=== PATIENT | female | born 1945 | race Caucasian/White ===

== ENCOUNTER 2017-01-01 17:28 | Emergency (ER) | payer MEDICARE, OTHER ==
[~2017-01-01] VITALS: Ht 157.5 cm; Wt 81.3 kg
[~2017-01-01 17:28] MED LIST: ALPR0.5T6 PO; CLON-276 PO; DICL100G18 TP; FAMO20TA5 PO; GABA-585 PO; HYDR-971 PO; INSU100I13 SQ; INSU100V SQ; ISOS30TA4 PO; LACT10SO PO; LEVO100T5 PO; METO25TA9 PO; ONDA4TAB11 PO; RIFA550T4 PO; SERT50TA PO; ZOLP5TAB5 PO
[2017-01-01 17:46] VITALS: BP 164/67
--- NOTE | 2017-01-01 19:22 | ED.ADGEN ---
Past History Past Medical History: CHF, Diabetes, Other Past Surgical History: Hysterectomy, Other Alcohol Use: None Drug Use: None Adult General HPI HPI Patient is a 71-year-old female, history of type 2 diabetes mellitus, hypertension, CHF on 2 L nasal cannula baseline, end-stage renal disease on hemodialysis events emergency department with a complaint of paresthesias and tingling in her bilateral hands while finishing a session of dialysis. Patient is asymptomatic at this time. Patient states that she was also experiencing some cramping in her legs, which she states happens from time to time. Patient states that she missed dialysis on Sunday, and therefore this is part of a makeup session, with 2 hours of dialysis performed today, and for 2 hours of dialysis to be performed tomorrow. Dr. Nobles is her inspector filters. Patient generally is dialyzed on Sunday and Sunday. Patient denies any chest pain or shortness breath, any nausea or vomiting, any weakness. On arrival to the emergency room, patient states that her symptoms avulsed fully abated. She states her hands were "very cold". Patient is also requesting that a chronic umbilical hernia be examined. Denies any difficulty with passing stools, any change in her occasional abdominal pain. Review of Systems Review of Systems Constitutional: Denies fever or chills [] Eyes: Denies change in visual acuity, redness, or eye pain [] HENT: Denies nasal congestion or sore throat [] Respiratory: Denies cough or shortness of breath [] Cardiovascular: No additional information not addressed in HPI [] GI: Denies nausea, vomiting, bloody stools or diarrhea, chronic abdominal pain from umbilical hernia. [] : Denies dysuria or hematuria [] Musculoskeletal: Denies back pain or joint pain [] Integument: Denies rash or skin lesions [] Neurologic: Denies headache, focal weakness, tingling and numbness in the bilateral hands. Endocrine: Denies polyuria or polydipsia [] Allergies Allergies Allergies Coded Allergies Type Severity Reaction Last Updated Verified No Known Drug Allergies 05/10/16 No Physical Exam Physical Exam Constitutional: Well developed, well nourished, no acute distress, non-toxic appearance. [] Nasal cannula in place. HENT: Normocephalic, atraumatic, bilateral external ears normal, oropharynx moist, no oral exudates, nose normal. [] Eyes: PERRLA, EOMI, conjunctiva normal, no discharge. [] Neck: Normal range of motion, no tenderness, supple, no stridor. [] Cardiovascular:Heart rate regular rhythm, no murmur, S1, S2, no rubs or gallops. [] Lungs & Thorax: Diminished breath sounds at bases bilaterally, no rhonchi rales or wheezing identified. [] Abdomen: Bowel sounds normal, soft, no rebound or rigidity, patient with an easily reducible umbilical hernia, mildly tender to palpation, no masses, no pulsatile masses. [] Skin: Warm, dry, no erythema, no rash. [] Back: No tenderness, no CVA tenderness. [] Extremities: No tenderness, no cyanosis, no clubbing, ROM intact, no edema. [] Neurologic: Alert and oriented X 3, normal motor function, normal sensory function, no focal deficits noted. [] Psychologic: Affect normal, judgement normal, mood normal. [] Current Patient Data Vital Signs Vital Signs Date Time Temp Pulse Resp B/P (MAP) Pulse Ox O2 Delivery O2 Flow Rate FiO2 01/01/17 17:46 98.1 67 20 98 Room Air EKG EKG Not indicated. Radiology/Procedures Radiology/Procedures Not indicated. [] Course & Med Decision Making Course & Med Decision Making Pertinent Labs and Imaging studies reviewed. (See chart for details) patient well-appearing in the emergency department, oxygen saturation is 100% arrest at her baseline 2 L nasal cannula, she is normotensive, with heart rate in the 60s. Patient states that this time that she is feeling well, and is ready to be discharged home. I did discuss with patient the electrolyte shifts that will cause paresthesias at time, and also cramping. I discussed with her the chronic umbilical hernia, which has no evidence of acutely concerning findings, will be best served by follow-up with a surgeon. Patient states that she does not currently her surgeon to follow with, therefore gave her the contact admission for Dr. Herzog. Patient's arrived in the emergency department, and was anxious for the patient be discharged, patient was in agreement with this plan. We discussed concerning symptoms that prompt return to the ED, patient to follow -up for her dialysis session tomorrow, and to return to the ED for concerning symptoms as discussed, to follow-up with Dr. Herzog as instructed. Final Impression Final Impression [] Problems: Dragon Disclaimer Dragon Disclaimer This electronic medical record was generated, in whole or in part, using a voice recognition dictation system. Departure: Impression: Primary Impression: Paresthesia of hand, bilateral Disposition: 01 HOME, SELF-CARE Condition: STABLE BRENT JOHNSON DO January 01, 2017 19:22
== END 2017-01-01 18:28 | disposition home or self-care (01) ==
LOC: ER 17:28
DX: R20.2 Paresthesia of skin (principal); I13.2 Hypertensive heart and chronic kidney disease with heart failure and with stage 5 chronic kidney disease, or end stage renal disease; I50.9 Heart failure, unspecified; N18.6 End stage renal disease; E11.22 Type 2 diabetes mellitus with diabetic chronic kidney disease; Z99.2 Dependence on renal dialysis
CPT/HCPCS: 99281; 99283

== ENCOUNTER 2017-05-09 04:32 | Observation (INO) | payer MEDICARE, OTHER ==
[~2017-05-09] VITALS: Ht 152.4 cm; Wt 77.7 kg
[~2017-05-09 04:32] MED LIST changes: +METO-239 PO; -METO25TA9 PO
--- NOTE | 2017-05-09 04:37 | PHYS DOC ---
Past History Past Medical History: CHF, Diabetes, Other Past Surgical History: Hysterectomy, Other Alcohol Use: None Drug Use: None Adult General Chief Complaint Chief Complaint: altered mental status [facility] HPI Patient is a 71 year old female who presents with altered mental status. Her woke up with her moaning and checked her sugar and it was 25. EMS was called and they arrived her sugar was 44. An amp of D50 was given and her sugar improved to the 170s. Her oxygen level was 88 and she was put on 2 L this improved to the 90s. She is alert and oriented 3 and can answer all questions appropriately but is very sleepy. She states this is happen before after dialysis. She dialyzed yesterday morning. She has a history of congestive heart failure, diabetes and end-stage renal disease. She is unsure if she took a sleeping pill last night. She denies a headache nausea vomiting chest pain shortness of breath. Upon arrival the states that her sugar was close to 285 at 10 PM and was given 10 units of NovoLog and at 1:30 she did additional 5 units. He states he wakes up every 2 hours and checks her sugars if she is not acting appropriately and that's when he noticed this morning that it was 44. Review of Systems Review of Systems Constitutional: Denies fever or chills [] Eyes: Denies change in visual acuity, redness, or eye pain [] HENT: Denies nasal congestion or sore throat [] Respiratory: Denies cough or shortness of breath [] Cardiovascular: No additional information not addressed in HPI [] GI: Denies abdominal pain, nausea, vomiting, bloody stools or diarrhea [] : Denies dysuria or hematuria [] Musculoskeletal: Denies back pain or joint pain [] Integument: Denies rash or skin lesions [] Neurologic: Denies headache, focal weakness or sensory changes [] Endocrine: Denies polyuria or polydipsia [] Allergies Allergies Allergies Coded Allergies Type Severity Reaction Last Updated Verified No Known Drug Allergies 05/10/16 No Physical Exam Physical Exam Constitutional: Well developed, well nourished, no acute distress, non-toxic appearance. [] HENT: Normocephalic, atraumatic, bilateral external ears normal, oropharynx moist, no oral exudates, nose normal. [] Eyes: PERRLA, EOMI, conjunctiva normal, no discharge. [] Neck: Normal range of motion, no tenderness, supple, no stridor. [] Cardiovascular:Heart rate regular rhythm, no murmur [] Lungs & Thorax: Bilateral breath sounds clear to auscultation [] Abdomen: Bowel sounds normal, soft, no tenderness, no masses, no pulsatile masses. [] Skin: Warm, dry, no erythema, no rash. [] Back: No tenderness, no CVA tenderness. [] Extremities: No tenderness, no cyanosis, no clubbing, ROM intact, no edema. [] Neurologic: Alert and oriented X 3, normal motor function, normal sensory function, no focal deficits noted. Very sleepy appearing. Psychologic: Affect normal, judgement normal, mood normal. [] EKG EKG [] Radiology/Procedures Radiology/Procedures [] Impressions: Hypoglycemia Course & Med Decision Making Course & Med Decision Making Pertinent Labs and Imaging studies reviewed. (See chart for details) Patient is alert and oriented but very lethargic. Repeat Accu-Chek after arrival showed a sugar of 47 again. She received another amp of D50. Labs are pending at this time in addition to CT of her head. Patient is being checked out to Dr. Fang and will likely need admission based on her somnolence. Dragon Disclaimer Dragon Disclaimer This chart was dictated in whole or in part using Voice Recognition software in a busy, high-work load, and often noisy Emergency Department environment. It may contain unintended and wholly unrecognized errors or omissions. Departure Departure: Referrals: NON,STAFF (PCP) DOUG RIVAS MD May 09, 2017 04:37
--- NOTE | 2017-05-09 04:51 | EKG ---
[address] [address] Test Date: 2017-05-09 Test Time: 04:43:58 Pat Name: KRISTINE MENDEZ Department: Room: Gender: F Ship'S Engineer: : 1945 Requested By: DOUG RIVAS Order Number: [id number] Reading MD: Measurements Intervals [place] Rate: 58 P: 0 FL: 168 QRS: -8 QRSD: 96 T: 93 QT: 484 QTc: 479 Interpretive Statements SINUS RHYTHM LEFTWARD AXIS T ABNORMALITY IN HIGH LATERAL LEADS PROLONGED QT ABNORMAL ECG RI6.01 No previous ECG available for comparison
[2017-05-09 05:10] LABS: BASO % 1 % (0-3); EOS # 0.1 x10^3/uL (0.0-0.7); EOS % 3 % (0-3); HEMATOCRIT 29.5 % (36.0-47.0); HEMOGLOBIN 10.2 g/dL (12.0-15.5); LYMPH # 0.4 x10^3/uL (1.0-4.8); LYMPH % 14 % (24-48); MEAN CORPUSCULAR HEMOGLOBIN 31 pg (25-35); MEAN CORPUSCULAR HGB CONC 35 g/dL (31-37); MEAN CORPUSCULAR VOLUME 90 fL (79-100); MONO # 0.4 x10^3/uL (0.0-1.1); MONO % 14 % (0-9); NEUT # 1.9 x10^3uL (1.8-7.7); NEUT % 69 % (31-73); PLATELET COUNT 49 x10^3/uL (140-400); RED BLOOD COUNT 3.28 x10^6/uL (3.50-5.40); RED CELL DISTRIBUTION WIDTH 15.2 % (11.5-14.5); WHITE BLOOD COUNT 2.8 x10^3/uL (4.0-11.0)
[2017-05-09 05:17] LABS: PLT ESTIMATE DECREASED (ADEQUATE)
[2017-05-09 05:19] LABS: HEMOGLOBIN ISTAT 9.5 gm/dL; POTASSIUM ISTAT 3.1 mmol/L (3.5-5.0)
[2017-05-09] MEDS ORDERED: DEXTROSE 50% 25 GM / 50ML DISP.SYRIN. IV ONE ×3 (05:19→07:00)
--- NOTE | 2017-05-09 05:31 | RAD ---
CT head without contrast: Reason for examination: Altered mental status with lethargy. Comparison is made to previous study dated 05/10/2016. Axial images were obtained through the brain. No contrast was administered. Exposure: One or more of the following individualized dose reduction techniques were utilized for this examination: 1. Automated exposure control 2. Adjustment of the mA and/or kV according to patient size 3. Use of iterative reconstruction technique. Ventricular systems are symmetric and not abnormally dilated. No midline shift is seen. There is no evidence of intracranial hemorrhage, infarct, mass or edema. There is calcification in the right basal ganglia which is unchanged. No abnormalities are seen at the orbits. The paranasal sinuses and mastoid air cells are clear. No acute abnormality seen in the skull. IMPRESSION: No acute intracranial abnormality evident. Electronically signed by: Anne Damian MD (05/09/2017 5:27 AM) [facility]
[2017-05-09 05:35] LABS: CLARITY,URINE HAZY; GLUCOSE,URINE 250 mg/dL (NEG)
[2017-05-09 05:36] LABS: BILIRUBIN,URINE NEG (NEG); NITRITE,URINE NEG (NEG); RBC,URINE OCC /HPF (0-2); UROBILINOGEN,URINE 0.2 mg/dL (0.2 mg/dL)
[2017-05-09 05:37] LABS: BACTERIA,URINE FEW /HPF (0-FEW); COLOR,URINE YELLOW; SQUAMOUS EPITHELIAL CELL,UR OCC /LPF
[2017-05-09 06:05] LABS: BARBITURATES NEG (NEG); BENZODIAZEPINES POS (NEG); CANNABINOIDS NEG (NEG); COCAINE NEG (NEG); METHADONE NEG (NEG); OPIATES NEG (NEG); PHENCYCLIDINE NEG (NEG)
[2017-05-09 06:12] LABS: CALCIUM 7.3 mg/dL (8.5-10.1); CREATININE 4.6 mg/dL (0.6-1.0); GFR 9.4; MAGNESIUM 2.3 mg/dL (1.8-2.4)
[2017-05-09 06:13] LABS: POTASSIUM 3.1 mmol/L (3.5-5.1)
[2017-05-09 06:15] LABS: AMPHETAMINE/METHAMPHETAMINE NEG (NEG)
[2017-05-09] MEDS ORDERED: ONDANSETRON PF 4 MG/2 ML VIAL. IV PRN ×2 (06:30→07:45)
[2017-05-09] MEDS ORDERED: IV DEXTROSE 5 %-0.45 % NACL 1,000 ML IV ONE (06:30)
[2017-05-09] MEDS ORDERED: MORPHINE SULFATE 2 MG/ML DISP.SYRIN. IV PRN (06:30)
--- NOTE | 2017-05-09 07:23 | RAD ---
Chest x-ray Indication: Altered mental status, lethargic Technique: Portable AP chest x-ray Comparison: Previous study from 05/10/2016 Findings: Stable moderate cardiomegaly. Prominent pulmonary vasculature noted with signs of cephalization. Patchy bilateral lung base opacities noted. No pneumothorax or large pleural effusion. Visualized bony thorax within normal limits. Impression: 1. Stable moderate clinically with pulmonary vascular congestion. 2. Bibasilar patchy opacities may be secondary to atelectasis, aspiration or pneumonia. Clinically correlate.
[2017-05-09 08:49] VITALS: BP 158/53
[2017-05-09] MEDS ORDERED: SODI650T PO (09:01)
[2017-05-09] MEDS ORDERED: SEVE800T9 PO (09:01)
[2017-05-09] MEDS ORDERED: ASPI325T8 PO (10:03)
[2017-05-09 10:11] VITALS: BP 136/68
[2017-05-09] MEDS ORDERED: CHOL500016 PO (11:15)
[2017-05-09] MEDS ORDERED: DIPH25CA58 PO (11:15)
[2017-05-09] MEDS ORDERED: POTASSIUM CHLORIDE 20 MEQ TABLET.ER. PO ONE (11:30)
--- NOTE | 2017-05-09 11:55 | HP ---
ADMIT DATE: 05/09/2017 REASON FOR ADMISSION: Hypoglycemia, altered mental status. HISTORY OF PRESENT ILLNESS: History was obtained from the patient, and this is a 71-year-old female, who was admitted to the Emergency Room. The heard her moaning in her sleep and checked her sugar and it was 25, and EMS was called. When they arrived, her glucose was 44. She received an amp of D50 and sugar improved to 170. She was mildly hypoxic at 88, and was placed on some oxygen. She states that her dropped her meter in her coffee and so used his meter and it has registered high and so she gave herself 10 units of NovoLog at 1:30 and an additional 5 units. The patient is a hemodialysis patient and actually missed her Sunday dialysis and had her dialysis yesterday. Per [facility], they state that she had a lot of fluid, and they were not able to get all the fluid off. She gets dialysis every other day. PAST MEDICAL HISTORY: She has a history of seizure from hyperglycemia; end-stage renal disease, on hemodialysis; pancytopenia; nonalcoholic cirrhosis, requiring paracentesis every 6 months; hypertension; hypokalemia; hypomagnesemia in the past and two small strokes per MRI. She has neuropathy. She has a Charcot joint in the right foot and also anxiety, depression, longstanding type 2 diabetes, hyperparathyroidism, hyperlipidemia, and congestive heart failure. PAST SURGICAL HISTORY: AV fistula, right arm and hysterectomy. FAMILY HISTORY: Positive for hypertension. SOCIAL HISTORY: Alcohol: None. Drugs: None. Tobacco: Remote and no longer smokes. REVIEW OF SYSTEMS: The patient's health is stable. She has no specific complaints other than being very tired, having been up all night and had the low blood sugar symptoms nausea, vomiting, diarrhea. She also has insomnia. MEDICATIONS: Her medications were reviewed; however, we do not have an accurate list. She has had a decrease in her Lantus, which she previously was on 70 units and is now down to 20 units at bedtime and usually gives herself 30 of Humalog 3 times a day with meals. She does have some type of supplemental scale. ALLERGIES: None. OBJECTIVE: VITAL SIGNS: Blood pressure 136/68, temperature 97.3, pulse 59, respirations 18, pulse ox 99% on room air. Height 60 inches, weight 171.31 pounds. GENERAL: Chronically ill appearing 71-year-old, in no acute distress. She does not have her glasses, her vision is impaired. Her hearing is normal. Her nose is patent. Her throat is clear. NECK: Supple. LUNGS: Clear to auscultation. CARDIOVASCULAR: Regular rhythm and rate. ABDOMEN: Soft, nontender. Could not appreciate any organomegaly. EXTREMITIES: Evidence of peripheral vascular disease, could not really palpate her pulses. SKIN: Very dry. She has a Charcot joint in the right foot with a rocker bottom right foot. LABORATORY DATA: Lowest glucose in the Emergency Room was 47. Her potassium was 3.1, magnesium 2.3. Ammonia is slightly high at 72. ASSESSMENT: 1. Hypoglycemia, with excessive insulin administration 2. Type 2 diabetes. 3. Altered mental status that appears to have resolved now. 4. Peripheral neuropathy. 5. End-stage renal disease, on dialysis. 6. History of depression. 7. History of anxiety. 8. Insomnia. 9. Hyperammonemia, most probably secondary to cirrhosis. 10. Elevated BNP without evidence of congestive heart failure. PLAN: Adjust her insulin. Monitor her glucoses for the next several hours and probably could discharge her later on today. Replace her potassium. PADMINI ENG DO DR: WILVER/gilda JOB#: [id number] / [id number]
[2017-05-09 12:05] VITALS: BP 147/57
[2017-05-09] MEDS ORDERED: INSU100I13 SQ (13:46)
[2017-05-09 15:58] VITALS: BP 155/59
--- NOTE | 2017-05-11 15:12 | DS ---
DATE OF DISCHARGE: 05/09/2017 DISCHARGE DIAGNOSES: 1. Hypoglycemia. 2. Type 2 diabetes. 3. Altered mental status, resolved. 4. Metabolic encephalopathy was from hypoglycemia. 5. Peripheral neuropathy. 6. End-stage renal disease on dialysis, present on admission. 7. History of depression, present on admission. 8. Anxiety, present on admission. 9. Insomnia, present on admission. 10. Hyperammonemia secondary to cirrhosis, present on admission. 11. Elevated BNP. HOSPITAL COURSE: The patient was admitted for observation because of very low blood sugars and giving herself too much insulin at home. Her glucoses came up nicely. She did not suffer any more sequelae while hospitalized and will be, I believe, discharged to home. She will be getting a new meter and for medication, see [facility]. PADMINI ENG DO DR: WILVER/gilda JOB#: [id number] / [id number]
== END 2017-05-09 16:30 | disposition home or self-care (01) ==
LOC: ER 04:32 → ICU 06:30
PROVIDERS: ADMIT Family Medicine; ATTEND Family Medicine
DX: E11.649 Type 2 diabetes mellitus with hypoglycemia without coma (principal); E11.22 Type 2 diabetes mellitus with diabetic chronic kidney disease; N18.6 End stage renal disease; G47.00 Insomnia, unspecified; E11.610 Type 2 diabetes mellitus with diabetic neuropathic arthropathy; F32.9 Major depressive disorder, single episode, unspecified; F41.9 Anxiety disorder, unspecified; I50.9 Heart failure, unspecified; E72.20 Disorder of urea cycle metabolism, unspecified; K74.69 Other cirrhosis of liver; G62.9 Polyneuropathy, unspecified; E78.5 Hyperlipidemia, unspecified; Z82.49 Family history of ischemic heart disease and other diseases of the circulatory system; Z86.73 Personal history of transient ischemic attack (TIA), and cerebral infarction without residual deficits; Z87.891 Personal history of nicotine dependence; Z90.710 Acquired absence of both cervix and uterus; Z99.2 Dependence on renal dialysis
CPT/HCPCS: 36415; 70450; 71010; 80047; 80048; 80307; 81001; 82140; 82553; 82947; 83735; 83880; 84484; 85025; 87086; 87641; 93005; 96361; 96374; 96376; 99285; G0378; G0379; G0479

== ENCOUNTER 2018-01-09 13:07 | Emergency (ER) | payer MEDICARE, OTHER ==
[~2018-01-09] VITALS: Ht 152.4 cm; Wt 81.3 kg
[~2018-01-09 13:07] MED LIST changes: +ASPI325T8 PO; +CHOL500016 PO; +DIPH25CA58 PO; +SEVE800T9 PO; +SODI650T PO
--- NOTE | 2018-01-09 13:25 | PHYS DOC ---
Past History Past Medical History: CHF, Diabetes, Renal Disease, Other Additional Past Medical Histor: liver failure Past Surgical History: Hysterectomy, Other Alcohol Use: None Drug Use: None Adult General Chief Complaint Chief Complaint: DENTAL PROBLEM HPI HPI Patient is a 72-year-old female, with a past history of liver disease, end- stage renal disease, on dialysis Sunday, , Sunday, whose last dialysis was yesterday, who presents to the emergency department for evaluation. She underwent removal of multiple teeth this morning, in preparation for having dentures placed. The patient developed some bleeding from her gums, and EMS was called. The bleeding has mostly resolved at this time. The patient denies any other complaints of pain at this time. She does not take any anticoagulants. She is not having any difficulty breathing. She does have a history of oxygen dependence. Review of Systems Review of Systems Constitutional: Denies fever or chills [] Eyes: Denies change in visual acuity, redness, or eye pain [] HENT: Denies nasal congestion or sore throat [] Respiratory: Denies cough or shortness of breath [] Cardiovascular: No chest pain or shortness of breath[] GI: Denies abdominal pain, nausea, vomiting, bloody stools or diarrhea [] Neurologic: Denies headache, focal weakness or sensory changes [] Hematologic: Does bruise easily. Allergies Allergies Allergies Coded Allergies Type Severity Reaction Last Updated Verified No Known Drug Allergies 05/10/16 No Physical Exam Physical Exam PHYSICAL EXAM: CONSTITUTIONAL: Well developed, well nourished HEAD: normocephalic, atraumatic. There are numerous dental extraction sites, with fresh clots present. There is no active bleeding visualized at this time. Airways patent. EENT: PERRL, EOMI. Conjunctivae normal color, sclerae non-icteric; moist mucous membranes. NECK: Supple, non-tender; no meningismus. LUNGS: Lungs CTA, breathing even and unlabored. Normal air movement. HEART: Regular rate and rhythm, no murmur CHEST: No deformity; non-tender ABDOMEN: The abdomen is soft, and non-tender, no masses or bruits. EXTREM: Normal ROM; no deformity, no calf tenderness. Normal pulses palpable in all extremities. There is mild bilateral pedal edema. Changes of venous stasis bilaterally. Left greater than right. There is a fistula in the right upper extremity. SKIN: No rash; no diaphoresis NEURO: Alert; normal speech and cognition; CN's grossly intact; strength grossly intact without focal deficit. BACK: No CVA TTP. EKG EKG [] Radiology/Procedures Radiology/Procedures [] Course & Med Decision Making Course & Med Decision Making Pertinent Lab studies reviewed. (See chart for details) [Patient condition remain stable. Bleeding has resolved with direct pressure. I discussed test results, the need for follow-up with her dentist on return precautions. The patient platelet count is similar to her baseline] Dragon Disclaimer Dragon Disclaimer This electronic medical record was generated, in whole or in part, using a voice recognition dictation system. Departure Departure: Impression: Primary Impression: Surgical wound hemorrhage after dental procedure Disposition: 01 HOME, SELF-CARE Condition: STABLE Referrals: NON,STAFF (PCP) Additional Instructions: Return to medical care for any new, or worsening symptoms, development of recurrent bleeding that does not stop with pressure, or any other concerning symptoms. BALDOMERO CASTAÑEDA MD Jan 09, 2018 13:24
[2018-01-09 13:51] LABS: CREATININE 3.8 mg/dL (0.6-1.0); GFR 11.7; POTASSIUM 4.4 mmol/L (3.5-5.1)
[2018-01-09 13:52] LABS: BASO % 1 % (0-3); EOS # 0.1 x10^3/uL (0.0-0.7); EOS % 2 % (0-3); HEMATOCRIT 29.4 % (36.0-47.0); HEMOGLOBIN 10.1 g/dL (12.0-15.5); LYMPH # 0.4 x10^3/uL (1.0-4.8); LYMPH % 10 % (24-48); MEAN CORPUSCULAR HEMOGLOBIN 31 pg (25-35); MEAN CORPUSCULAR HGB CONC 34 g/dL (31-37); MEAN CORPUSCULAR VOLUME 91 fL (79-100); MONO # 0.3 x10^3/uL (0.0-1.1); MONO % 7 % (0-9); NEUT # 3.2 x10^3uL (1.8-7.7); NEUT % 81 % (31-73); PLATELET COUNT 68 x10^3/uL (140-400); RED BLOOD COUNT 3.25 x10^6/uL (3.50-5.40)
[2018-01-09 14:36] VITALS: BP 162/63
== END 2018-01-09 14:37 | disposition home or self-care (01) ==
LOC: ER 13:07
DX: K91.840 Postprocedural hemorrhage of a digestive system organ or structure following a digestive system procedure (principal); E11.22 Type 2 diabetes mellitus with diabetic chronic kidney disease; N18.6 End stage renal disease; Z99.2 Dependence on renal dialysis; I50.9 Heart failure, unspecified; Z99.81 Dependence on supplemental oxygen
CPT/HCPCS: 36415; 80048; 85025; 85610; 85730; 99284

== ENCOUNTER 2018-01-20 22:14 | Emergency (ER) | payer MEDICARE, OTHER ==
[~2018-01-20] VITALS: Ht 152.4 cm; Wt 75.1 kg
[2018-01-20 22:15] VITALS: BP 165/65
--- NOTE | 2018-01-20 23:03 | RAD ---
EXAM: Right wrist, 3 views; right forearm, 2 views. HISTORY: Pain. COMPARISON: None. FINDINGS: 3 views of the right wrist and 2 views of the right forearm are obtained. There is external casting material significantly limiting evaluation of bony detail. There is a comminuted displaced intra-articular fracture of the distal radial metaphysis. There is a displaced fracture of the distal ulnar metaphysis and ulnar styloid. There are vascular calcifications. No proximal radial or ulnar fracture is seen. There is no evidence of an elbow effusion. IMPRESSION: 1. External casting material limiting evaluation of bony detail. 2. Displaced intra-articular fracture of the distal radial metaphysis. 3. Displaced distal ulnar metaphyseal and ulnar styloid fractures. Electronically signed by: Connie Galarza MD (01/20/2018 10:58 PM) [facility]
--- NOTE | 2018-01-20 23:07 | ED.ADGEN ---
Past History Past Medical History: CHF, COPD, Diabetes, Hypertension, Renal Failure Additional Past Medical Histor: liver failure Past Surgical History: Hysterectomy Alcohol Use: None Drug Use: None Adult General HPI HPI Patient is a 72 year old female who presents with injury to the right hand. The patient was working all day today. She stumbled and fell forward on an outstretched hand. She sustained an injury to the right fingers. The patient is currently wearing a cast. She had a fall and december when she broke her distal ulna and radius. She has been tested since that time. She is concerned today that she reinjured the broken bone or sustained a new injury to her hand or fingers. Review of Systems Review of Systems Constitutional: Denies fever or chills Respiratory: mild dyspnea sx that are chronic Cardiovascular: No additional information not addressed in HPI GI: Denies abdominal pain Musculoskeletal: Denies back pain or joint pain Integument: Denies rash or skin lesions Neurologic: Denies headache Endocrine: Denies polyuria All other systems were reviewed and found to be within normal limits, except as documented in this note. Allergies Allergies Allergies Coded Allergies Type Severity Reaction Last Updated Verified No Known Drug Allergies 05/10/16 No Physical Exam Physical Exam Constitutional: Well developed, well nourished, no acute distress, non-toxic appearance HENT: Normocephalic, atraumatic, bilateral external ears normal, oropharynx moist Neck: Normal range of motion, no tenderness Skin: Warm, dry, no erythema Back: No tenderness Extremities: Fiberglass wrist splint is present over the right wrist and forearm. The fingertips are warm to touch with brisk capillary refill. There is no gross deformity. The patient has arthritic joints. There is some very mild tenderness over the index finger PIP joint but the joint does have free range of motion. Neurologic: Alert and oriented X 3 Current Patient Data Vital Signs Vital Signs Date Time Temp Pulse Resp B/P (MAP) Pulse Ox O2 Delivery O2 Flow Rate FiO2 01/20/18 22:15 99.0 72 22 93 Room Air EKG EKG [] Radiology/Procedures Radiology/Procedures FINDINGS: 3 views of the right wrist and 2 views of the right forearm are obtained. There is external casting material significantly limiting evaluation of bony detail. There is a comminuted displaced intra-articular fracture of the distal radial metaphysis. There is a displaced fracture of the distal ulnar metaphysis and ulnar styloid. There are vascular calcifications. No proximal radial or ulnar fracture is seen. There is no evidence of an elbow effusion. IMPRESSION: 1. External casting material limiting evaluation of bony detail. 2. Displaced intra-articular fracture of the distal radial metaphysis. 3. Displaced distal ulnar metaphyseal and ulnar styloid fractures. Course & Med Decision Making Course & Med Decision Making Pertinent Labs and Imaging studies reviewed. (See chart for details) Patient is seen and examined in the ER for a fall. She had a finger injury as described above. X-rays were completed of the wrist and forearm. These were revealing for the fractures which are early known about. I did not appreciate any fracture in the finger or the area of concern distal to her current cast. She or he has pain medications at home. She is discharged to home and encouraged to follow up with her primary care doctor or orthopedist as already scheduled. Final Impression Final Impression contusion of finger Zoraida Disclaimer Dragon Disclaimer This electronic medical record was generated, in whole or in part, using a voice recognition dictation system. TRUE RAGSDALE DO Jan 20, 2018 23:07
== END 2018-01-20 23:23 | disposition home or self-care (01) ==
LOC: ER 22:14
DX: S52.611A Displaced fracture of right ulna styloid process, initial encounter for closed fracture (principal); S52.91XA Unspecified fracture of right forearm, initial encounter for closed fracture; S60.021A Contusion of right index finger without damage to nail, initial encounter; J44.9 Chronic obstructive pulmonary disease, unspecified; I11.0 Hypertensive heart disease with heart failure; I50.9 Heart failure, unspecified; E11.9 Type 2 diabetes mellitus without complications; W01.0XXA Fall on same level from slipping, tripping and stumbling without subsequent striking against object, initial encounter; Y93.89 Activity, other specified; Y99.8 Other external cause status; Y92.89 Other specified places as the place of occurrence of the external cause
CPT/HCPCS: 73090; 73110; 99284

== ENCOUNTER 2018-03-01 17:50 | Emergency (ER) | payer MEDICARE, OTHER ==
[~2018-03-01] VITALS: Ht 152.4 cm; Wt 75.1 kg
--- NOTE | 2018-03-01 17:54 | ED.ADGEN ---
Past History Past Medical History: CHF, COPD, Diabetes, Hypertension, Renal Failure, Other Additional Past Medical Histor: liver failure Past Surgical History: Hysterectomy, Other Alcohol Use: None Drug Use: None Adult General Chief Complaint Chief Complaint '.. I was cleaning out some drawers in the kitchen...and I was standing.. and eliana lost my balance and felll... hurt my Rt hand... you can see the blood blister.... and hit my bad lt knee... the one that had surgery... and then smacked my face on the floor... I still got a sore face and headache.. and I fell about 500 pm.. but I am still hurting..." HPI HPI Patient is a 72 year old female who presents with above hx and complaints of trip and fall while she is working in the kitchen. Patient denies any dysrhythmia or syncopal episode. Patient was not using a walker at the time. Patient is not wearing her wrist splint that time. Patient already has radius and or fracture and right wrist. Has a new blood blister on her dorsal area of right hand. Has contusion to the left knee. Distal neurovascular appears intact. Patient able to do straight leg lifts. Patient able to tennis ball coverer hand with hand. Patient has contusions to face. Has what appears to be a nasal fracture or marked edema. No septal hematoma. No changes in vision. Neck is nontender. Patient states he does take a blood thinner. Patient normally follows at [facility] for care. Review of Systems Review of Systems Constitutional: Denies fever or chills [] Eyes: Denies change in visual acuity, redness, or eye pain [] HENT: Denies nasal congestion or sore throat []complains of contusion to face and nose Respiratory: Denies cough or shortness of breath [] Cardiovascular: No additional information not addressed in HPI [] GI: Denies abdominal pain, nausea, vomiting, bloody stools or diarrhea [] : Denies dysuria or hematuria [] Musculoskeletal: Denies back pain or joint pain [complains of contusion to left knee and right wrist and hand. Integument: Denies rash or skin lesions [] Neurologic: Denies headache, focal weakness or sensory changes [] Endocrine: Denies polyuria or polydipsia [] All other systems were reviewed and found to be within normal limits, except as documented in this note. Family History Family History Noncontributory Current Medications Current Medications Current Medications Medications (Trade) Dose Ordered Sig/Christ Start Time Stop Time Status Last Admin Dose Admin Oxycodone/ Acetaminophen (Percocet 5/325) 1 tab 1X ONCE 03/01/18 18:00 03/01/18 18:05 DC 03/01/18 18:42 1 TAB Allergies Allergies Allergies Coded Allergies Type Severity Reaction Last Updated Verified No Known Drug Allergies 05/10/16 No Physical Exam Physical Exam Constitutional: Mild distress, non-toxic appearance. [] HENT: Normocephalic, contusion mid face, bilateral external ears normal, oropharynx moist, no oral exudates, nose:. Does have tenderness along the bony portion of nasal bridge] Eyes: PERRLA, EOMI, conjunctiva normal, no discharge. [] Neck: Normal range of motion, no tenderness, supple, no stridor. [] Cardiovascular:Heart rate regular rhythm, no murmur []PMI to the left. Lungs & Thorax: Bilateral breath sounds equal apex with scattered crackles bilateral bases on Auscultation [] Abdomen: Bowel sounds normal, soft, no tenderness, no masses, no pulsatile masses. [] Old surgical scar. Skin: Warm, dry, no erythema, no rash. Multiple contusions and abrasions in the distant stages of healing. No contusions to left knee right hand and midface Back: No tenderness, no CVA tenderness. [] Extremities: Left knee tenderness, no cyanosis, no clubbing, ROM intact, no edema. []Can do straight leg lift with Lt leg, old scar and new contusion Lt. knee. Does have crepitation range of motion. Patient is ambulatory without problems- but has some shuffle gait. . Arthritic changes. Neurologic: Alert and oriented X 3, normal motor function, normal sensory function, no focal deficits noted. [] Psychologic: Affect anxious, judgement normal, mood normal. [] Current Patient Data Vital Signs Vital Signs Date Time Temp Pulse Resp B/P (MAP) Pulse Ox O2 Delivery O2 Flow Rate FiO2 03/01/18 18:05 71 18 95 Room Air EKG EKG My interpretation EKG shows a sinus rhythm at 72 bpm. Does have a junctional rhythm. Left axis. Nonspecific T-wave changes.[] Radiology/Procedures Radiology/Procedures I interpretation of CT head shows no shift, mass, edema, bleed, or fracture. Does have generalized atrophy. Findings of dictation of facial film shows minimally displaced nasal fracture. My interpretation of right wrist and hand film shows no new fractures and hand but has old minimal healing of right wrist fracture. My interpretation of knee shows no obvious fracture or dislocation. Does have arthritic changes, calcification of arteries and degenerative joint changes. My interpretation chest x-ray shows cardiomegaly. Calcified aorta, some increased cephalization consistent with CHF.[] Course & Med Decision Making Course & Med Decision Making Pertinent Labs and Imaging studies reviewed. (See chart for details). Follow- up primary care. Use ice packs. Use walker. Use wrist splint. Keep follow-up with orthopedic. Patient is ambulatory missed follow-up appointments on 02/22 and 02/27. Patient refusing admission for neuro evaluation or further workup at this time. Demanding discharge. Patient exhibits UCAR capacity. [] Final Impression Final Impression 1. Contusions - Face, Rt. hand, Lt. knee 2. Nasal Fx- new 3. Wrist Fx. Rt. old- all her and radius. 4. Pulmonary edema/CHF- history of a chronic condition Dragon Disclaimer Dragon Disclaimer This electronic medical record was generated, in whole or in part, using a voice recognition dictation system. BETTY WEAVER MD Mar 01, 2018 17:54
[2018-03-01] MEDS ORDERED: oxyCODONE/APAP 5/325 1 TAB TABLET PO ONE (18:00)
[2018-03-01 18:05] VITALS: BP 145/54
--- NOTE | 2018-03-01 18:39 | EKG ---
[address] [address] Test Date: 2018-03-01 Test Time: 18:35:32 Pat Name: KRISTINE MENDEZ Department: Room: Gender: F Thread Cutter: : [id number] Requested By: BETTY WEAVER Order Number: [id number] Reading MD: Measurements Intervals [place] Rate: 72 P: [place]: QRS: -9 QRSD: 90 T: 71 QT: 404 QTc: 444 Interpretive Statements ACCELERATED JUNCTIONAL RHYTHM LEFTWARD AXIS T ABNORMALITY IN HIGH LATERAL LEADS ABNORMAL ECG RI6.01 Compared to ECG 05/09/2017 04:43:58 Accelerated junctional rhythm now present Sinus rhythm no longer present Prolonged QT interval no longer present T-wave abnormality still present
--- NOTE | 2018-03-01 18:40 | RAD ---
CT head without intravenous contrast History: Fall. Comparison: CT head May 19, 2017. Technique: Axial images are obtained of the head from the skull base through the vertex without IV contrast. Exposure: One or more of the following individualized dose reduction techniques were utilized for this examination: 1. Automated exposure control 2. Adjustment of the mA and/or kV according to patient size 3. Use of iterative reconstruction technique Findings: The ventricles are appropriate in size, shape, and location for the patient's age. No obvious intracranial mass, mass-effect, midline shift, hemorrhage or obvious acute infarction is identified. Basilar cisterns are patent. Mild, patchy, nonspecific white matter low-attenuation seen, probably from chronic microvascular ischemic disease. Bone windows demonstrate no acute calvarial abnormality. The visualized paranasal sinuses appear clear. Impression: 1. No acute intracranial process. Please note that CT can be relatively insensitive to acute ischemic infarction for up to 24 hours after symptom onset. 2. Nonspecific white matter changes, probably from chronic microvascular ischemic disease. CT cervical spine Technique: Noncontrast CT of the cervical spine was performed using helical technique. Axial, sagittal, coronal reconstructions were obtained. Exposure: One or more of the following individualized dose reduction techniques were utilized for this examination: 1. Automated exposure control 2. Adjustment of the mA and/or kV according to patient size 3. Use of iterative reconstruction technique Findings: There is no evidence of acute fracture or acute malalignment involving the cervical spine. No prevertebral soft tissue swelling is identified. Multilevel degeneration is seen with facet and uncovertebral hypertrophy as well as degenerative disc disease. Impression: 1. No evidence of acute traumatic injury involving the cervical spine. 2. Degeneration. Electronically signed by: Adrien Jara MD (03/01/2018 6:37 PM) [facility]
--- NOTE | 2018-03-01 18:48 | RAD ---
CT face without contrast History: Fall. Technique: CT of the face was performed without intravenous contrast. Axial, sagittal, and coronal reconstructions were obtained. Exposure: One or more of the following individualized dose reduction techniques were utilized for this examination: 1. Automated exposure control 2. Adjustment of the mA and/or kV according to patient size 3. Use of iterative reconstruction technique Findings: There is motion artifact at a few levels which could obscure subtle abnormalities. Slightly displaced bilateral nasal bone fractures are seen. There is evidence of mild nasal soft tissue swelling. The visualized paranasal sinuses are clear with no significant mucosal thickening. Bilateral orbits and orbital contents appear intact. Impression: Mildly limited examination. Slightly displaced bilateral nasal bone fractures. Electronically signed by: Adrien Jara MD (03/01/2018 6:44 PM) [facility]
--- NOTE | 2018-03-01 19:08 | RAD ---
History: Fall. Comparison: None. Findings: AP, lateral, oblique, and merchant view of left knee. Osseous structures appear demineralized. No acute fracture or dislocation is seen. No joint effusion is appreciated. Quadriceps tendon insertional enthesophyte is present. Arterial calcifications are seen. No significant degeneration is identified. The diffuse soft tissue swelling is noted in the visualized structures. Impression: No acute osseous traumatic injury identified. Electronically signed by: Adrien Jara MD (03/01/2018 7:04 PM) [facility]
--- NOTE | 2018-03-01 19:10 | RAD ---
History: Fall. Comparison: Right wrist radiographs January 20, 2018. Findings: PA, lateral, and oblique views of the right hand. Osseous structures appear demineralized. No acute fracture or dislocation is identified in the bones of the hand itself. Arterial calcifications are seen. Subacute fractures are again seen involving the distal radius and ulna. Distal ulnar fracture demonstrates a large amount of osteolysis without significant bridging callus formation. There is some sclerosis of the distal radial fracture. Impression: 1. No acute osseous traumatic injury identified in the bones of the hand. 2. Known, subacute distal radial and ulnar fractures. Electronically signed by: Adrien Jara MD (03/01/2018 7:07 PM) [facility]
--- NOTE | 2018-03-01 19:11 | RAD ---
PA and lateral chest radiograph. History: Fall. Comparison: May 09, 2017. Findings: Cardiac silhouette is mildly enlarged. No pneumothorax or pleural effusion is identified. Pulmonary vascular redistribution is seen. No large consolidation is seen. Impression: 1. Pulmonary vascular congestion. Electronically signed by: Adrien Jara MD (03/01/2018 7:08 PM) [facility]
== END 2018-03-01 19:48 | disposition home or self-care (01) ==
LOC: ER 17:50
DX: S02.2XXA Fracture of nasal bones, initial encounter for closed fracture (principal); S00.83XA Contusion of other part of head, initial encounter; S80.02XA Contusion of left knee, initial encounter; S60.221A Contusion of right hand, initial encounter; I11.0 Hypertensive heart disease with heart failure; I50.9 Heart failure, unspecified; J44.9 Chronic obstructive pulmonary disease, unspecified; E11.9 Type 2 diabetes mellitus without complications; N19 Unspecified kidney failure; S52.501D Unspecified fracture of the lower end of right radius, subsequent encounter for closed fracture with routine healing; S52.601D Unspecified fracture of lower end of right ulna, subsequent encounter for closed fracture with routine healing; W01.198A Fall on same level from slipping, tripping and stumbling with subsequent striking against other object, initial encounter; Y93.E9 Activity, other interior property and clothing maintenance; Y92.090 Kitchen in other non-institutional residence as the place of occurrence of the external cause; Y99.0 Civilian activity done for income or pay
CPT/HCPCS: 70450; 70486; 71046; 72125; 73130; 73564; 93005; 99284-25

== ENCOUNTER → 2018-05-06 | Outpatient (CLI) | payer MEDICARE, OTHER ==
[~2018-05-06] MED LIST changes: +IOHEXOL 240 MG/ML 50ML VIAL. ONE; +IOHEXOL 240 MG/ML 50ML VIAL. PO ONE; +IOHEXOL 300 MG/ML 75 ML VIAL. IV ONE
[2018-05-06 10:22] LABS: CREATININE 4.2 mg/dL (0.6-1.0); GFR 10.4
--- NOTE | 2018-05-06 12:16 | RAD ---
CT of the abdomen and pelvis with IV contrast. 05/06/2018 INDICATION: Right lower quadrant abdominal pain. History of cirrhosis, ascites. Renal failure, congestive heart failure, diabetes, and hypertension. COMPARISON STUDY: None available. TECHNIQUE: Multidetector CT imaging of the abdomen and pelvis was performed following the administration of IV contrast. Visualized lung bases demonstrate mild dependent atelectasis but otherwise unremarkable. There is a small 7 mm hypodensity in the posterior mid right kidney suggestive of a cyst, though incompletely evaluated. The kidneys are otherwise unremarkable. The adrenal glands are unremarkable. The pancreas is atrophic in appearance. Multiple small stones are noted within the dependent portion of the gallbladder. There is a small calcification noted in the distal common bile duct. The common bile duct measures approximately 6 mm in diameter which is top normal. No intrahepatic biliary dilatation is seen. Cirrhotic morphology of liver is seen. Scattered small hepatic hypodensities are seen suggestive of cysts. Some smaller lesions are noted which are too small to adequately characterize based on CT examination. Cirrhotic liver morphology is noted. Ascites is seen in the upper abdomen bilaterally. The spleen is markedly enlarged. The spleen measures up to 18.5 cm longitudinally. Calcification of the celiac axis and dense calcification of the splenic artery noted. Multiple prominent gastroesophageal varices are seen. A splenorenal shunt is noted. Scant ascites is seen in the lower abdomen. Diffuse body wall and mesenteric edema is noted. There is no evidence of bowel obstruction. The presence of diffuse edema limits evaluation for subtle inflammatory change. No definitive inflammatory change involving the bowel is identified. The appendix is visualized appears to be grossly unremarkable, though again being surrounded by edema and ascites, somewhat limits sensitivity. There is an umbilical hernia. The hernia sac is filled with fluid/ascites. Hernia defect is relatively small measuring 2 cm longitudinally by 2.5 cm transverse. Small amount of mesenteric fat and varices are present within the hernia sac. The umbilical vein all small appears to be recanalized. No evidence of acute osseous abnormality is identified. IMPRESSION: 1. Choledocholithiasis with small stone noted in the distal common bile duct. Common bile duct is mildly prominent at 6 mm. No intrahepatic biliary dilatation is seen. Cholelithiasis also noted. Recommend correlation with serum bilirubin levels and clinical findings. 2. Cirrhosis with portal hypertension including ascites, marked Splenomegaly, gastroesophageal varices, and a splenorenal shunt 3. Diffuse body wall and mesenteric edema 4. 7 mm nonspecific hypodensity, posterior right kidney. Finding most likely represents a cyst. Attention on follow-up studies recommended. 5. Umbilical hernia CT DOSING PQRS STATEMENT: One or more of the following individualized dose reduction techniques were utilized for this examination: 1. Automated exposure control 2. Adjustment of the mA and/or kV according to patient size 3. Use of iterative reconstruction technique Electronically signed by: Reinaldo Oliva MD (05/06/2018 12:12 PM) [id number]
== END | disposition home or self-care (01) ==
LOC: CT 09:15
PROVIDERS: ATTEND Internal Medicine Gastroenterology
DX: K74.69 Other cirrhosis of liver (principal); K80.50 Calculus of bile duct without cholangitis or cholecystitis without obstruction; K80.20 Calculus of gallbladder without cholecystitis without obstruction; K42.9 Umbilical hernia without obstruction or gangrene; R16.1 Splenomegaly, not elsewhere classified; R18.8 Other ascites; J98.11 Atelectasis; I13.2 Hypertensive heart and chronic kidney disease with heart failure and with stage 5 chronic kidney disease, or end stage renal disease; E11.22 Type 2 diabetes mellitus with diabetic chronic kidney disease; I50.9 Heart failure, unspecified; N18.6 End stage renal disease
CPT/HCPCS: 36415; 74177; 82565; 84520; Q9966; Q9967

== ENCOUNTER 2018-05-15 21:09 | Emergency (ER) | payer MEDICARE, OTHER ==
[~2018-05-15] VITALS: Ht 152.4 cm; Wt 75.1 kg
[~2018-05-15 21:09] MED LIST changes: -IOHEXOL 240 MG/ML 50ML VIAL. ONE; -IOHEXOL 240 MG/ML 50ML VIAL. PO ONE; -IOHEXOL 300 MG/ML 75 ML VIAL. IV ONE
--- NOTE | 2018-05-15 22:06 | RAD ---
EXAM: Left lower extremity venous Doppler. HISTORY: Left lower extremity pain/swelling. COMPARISON: None. FINDINGS: Grayscale and Doppler analysis of the left lower extremity deep venous system was performed with graded compression and augmentation. The common femoral, greater saphenous, superficial femoral, popliteal and calf veins were assessed. There is no evidence of deep venous thrombosis. Popliteal cyst measures 3.7 x 3.2 x 1.1 cm. Subcutaneous edema is noted. IMPRESSION: 1. No evidence of deep venous thrombosis. 2. Small left popliteal cyst. Electronically signed by: Chris Perez MD (05/15/2018 10:03 PM) [facility]
[2018-05-15] MEDS ORDERED: HYDR-971 PO (22:08)
[2018-05-15] MEDS ORDERED: PRED20TA PO (22:09)
--- NOTE | 2018-05-15 22:10 | PHYS DOC ---
Adult General Chief Complaint Chief Complaint leg pain HPI HPI 72 years old female presented to the emergency department with left leg pain described as sharp constant pain pain started in her lower back radiating to her left leg . No fever no chills no numbness no weakness Review of Systems Review of Systems Constitutional: Denies fever or chills [] Eyes: Denies change in visual acuity, redness, or eye pain [] HENT: Denies nasal congestion or sore throat [] Respiratory: Denies cough or shortness of breath [] Cardiovascular: No additional information not addressed in HPI [] GI: Denies abdominal pain, nausea, vomiting, bloody stools or diarrhea [] : Denies dysuria or hematuria [] Musculoskeletal: Denies joint pain [] Integument: Denies rash or skin lesions [] Neurologic: Denies headache, focal weakness or sensory changes [] Endocrine: Denies polyuria or polydipsia [] All other systems were reviewed and found to be within normal limits, except as documented in this note. Current Medications Current Medications Current Medications Medications (Trade) Dose Ordered Sig/Christ Start Time Stop Time Status Last Admin Dose Admin Morphine Sulfate (Morphine 4mg Syringe) 4 mg 1X ONCE 05/15/18 22:15 05/15/18 22:16 UNV Allergies Allergies Allergies Coded Allergies Type Severity Reaction Last Updated Verified No Known Drug Allergies 05/06/18 No Physical Exam Physical Exam Constitutional: Well developed, well nourished, no acute distress, non-toxic appearance. [] HENT: Normocephalic, atraumatic, bilateral external ears normal, oropharynx moist, no oral exudates, nose normal. [] Eyes: PERRLA, EOMI, conjunctiva normal, no discharge. [] Neck: Normal range of motion, no tenderness, supple, no stridor. [] Cardiovascular:Heart rate regular rhythm, no murmur [] Lungs & Thorax: Bilateral breath sounds clear to auscultation [] Abdomen: Bowel sounds normal, soft, no tenderness, no masses, no pulsatile masses. [] Skin: Warm, dry, no erythema, no rash. [] Back: No tenderness, no CVA tenderness. [] Extremities: No tenderness, no cyanosis, no clubbing, ROM intact, no edema. [] Neurologic: Alert and oriented X 3, normal motor function, normal sensory function, no focal deficits noted. [] Psychologic: Affect normal, judgement normal, mood normal. [] Current Patient Data Vital Signs Vital Signs Date Time Temp Pulse Resp B/P (MAP) Pulse Ox O2 Delivery O2 Flow Rate FiO2 05/15/18 21:25 99.0 78 16 95 Room Air EKG EKG [] Radiology/Procedures Radiology/Procedures [] Course & Med Decision Making Course & Med Decision Making Pertinent Labs and Imaging studies reviewed. (See chart for details) [] Final Impression Final Impression [] Problems: (1) Chronic back pain Qualifiers: Qualified Codes: M54.42 - Lumbago with sciatica, left side; G89.29 - Other chronic pain Dragon Disclaimer Dragon Disclaimer This electronic medical record was generated, in whole or in part, using a voice recognition dictation system. AARON TALAVERA MD May 15, 2018 22:10
[2018-05-15] MEDS ORDERED: MORPHINE SULFATE 4 MG/ML DISP.SYRIN. IM ONE (22:15)
[2018-05-15 22:20] VITALS: BP 134/54
== END 2018-05-15 22:27 | disposition home or self-care (01) ==
LOC: ER 21:09
DX: M54.42 Lumbago with sciatica, left side (principal); G89.29 Other chronic pain
CPT/HCPCS: 93971; 96372; 99284; J2270

== ENCOUNTER 2018-05-29 13:51 | Emergency (ER) | payer MEDICARE, OTHER ==
[~2018-05-29] VITALS: Ht 152.4 cm; Wt 77.1 kg
[~2018-05-29 13:51] MED LIST changes: +PRED20TA PO
[2018-05-29 14:52] LABS: BASO % 1 % (0-3); EOS # 0.1 x10^3/uL (0.0-0.7); EOS % 3 % (0-3); HEMATOCRIT 28.3 % (36.0-47.0); HEMOGLOBIN 9.8 g/dL (12.0-15.5); LYMPH # 0.5 x10^3/uL (1.0-4.8); LYMPH % 13 % (24-48); MEAN CORPUSCULAR HEMOGLOBIN 31 pg (25-35); MEAN CORPUSCULAR HGB CONC 35 g/dL (31-37); MEAN CORPUSCULAR VOLUME 89 fL (79-100); MONO # 0.4 x10^3/uL (0.0-1.1); MONO % 11 % (0-9); NEUT # 2.5 x10^3uL (1.8-7.7); NEUT % 72 % (31-73); PLATELET COUNT 60 x10^3/uL (140-400); RED BLOOD COUNT 3.18 x10^6/uL (3.50-5.40); RED CELL DISTRIBUTION WIDTH 15.9 % (11.5-14.5); WHITE BLOOD COUNT 3.5 x10^3/uL (4.0-11.0)
--- NOTE | 2018-05-29 15:00 | RAD ---
History: Fall. Left knee pain. Comparison: March 01, 2018. Findings: AP, lateral, and oblique views of left knee. Osseous structures appear demineralized. No acute fracture or dislocation is identified. No joint effusion is seen. Small quadriceps tendon insertional enthesophyte is present. Arterial calcifications are seen. Impression: No acute osseous traumatic injury identified. Electronically signed by: Adrien Jara MD (05/29/2018 2:57 PM) [facility]
--- NOTE | 2018-05-29 15:03 | RAD ---
CHEST AP ONLY Clinical Indication: SOB, ALSO PT STATES FALL LT KNEE PAIN Comparison: Two-view chest March 01, 2018. Findings: Stable cardiomegaly. Atherosclerotic aortic arch. Pulmonary vascular congestion is similar to prior study. No focal airspace disease. No pleural abnormality. IMPRESSION: Cardiomegaly and pulmonary vascular congestion, unchanged from prior study. Electronically signed by: Jamil Roy MD (05/29/2018 3:00 PM) [id number]
[2018-05-29 15:11] LABS: C REACTIVE PROTEIN 22.1 mg/L (0-3.3); CALCIUM 7.8 mg/dL (8.5-10.1); CREATININE 3.9 mg/dL (0.6-1.0); GFR 11.4; POTASSIUM 4.2 mmol/L (3.5-5.1)
[2018-05-29] MEDS ORDERED: CEPHALEXIN 250 MG CAPSULE PO ONE (15:45)
--- NOTE | 2018-05-29 16:46 | ED.ADGEN ---
Past History Past Medical History: CHF, COPD, Diabetes Additional Past Medical Histor: liver failure Past Surgical History: Hysterectomy Alcohol Use: None Drug Use: None Adult General Chief Complaint Chief Complaint Left knee pain, bilateral leg swelling. HPI HPI Patient is a 72-year-old female with history of IBD's, congestive heart failure , end-stage renal disease requiring dialysis who presents with left knee pain after twisting knee earlier. Patient reports pain with ambulation increased bilateral leg swelling. Patient's granddaughter also reports patient became confused with some slurring of words this morning. No headache, loss of vision focal extremity weakness loss of sensation. No fever chills or sweats. No chest pain palpitations, shortness of breath. No other acute symptoms or complaints.[] Review of Systems Review of Systems Review symptoms as per history of present illness. All other review symptoms are negative. All other systems were reviewed and found to be within normal limits, except as documented in this note. Current Medications Current Medications Current Medications Medications (Trade) Dose Ordered Sig/Christ Start Time Stop Time Status Last Admin Dose Admin Cephalexin HCl (Keflex) 500 mg 1X ONCE 05/29/18 15:45 05/29/18 15:46 DC 05/29/18 16:34 500 MG Allergies Allergies Allergies Coded Allergies Type Severity Reaction Last Updated Verified No Known Drug Allergies 05/06/18 No Physical Exam Physical Exam Constitutional: Well developed, well nourished, no acute distress, non-toxic appearance. [] HENT: Normocephalic, atraumatic, bilateral external ears normal, oropharynx moist, no oral exudates, nose normal. [] Eyes: PERRLA, EOMI, conjunctiva normal, no discharge. [] Neck: Normal range of motion, no tenderness, supple, no stridor. [] Cardiovascular:Heart rate regular rhythm, no murmur. [] Lungs & Thorax: Bilateral breath sounds clear to auscultation. [] Abdomen: Bowel sounds normal, soft, no tenderness. [] Skin: Warm, dry, no erythema, no rash. [] Back: No tenderness. [] Extremities:Left knee, anterior swelling, no induration, erythema. Popliteal pulse present. Diffuse peripheral edema bilateral extremities with mild erythema warmth of left leg . Right mid plantar surface selling with indrrated lesion consistent concerning for soft tissue infection of unknown duration. No fluctuance or drainage.[] Neurologic: Alert and oriented X 2, mild slurring speech, normal motor function , normal sensory function, no focal deficits noted. [] Psychologic: Affect normal, judgement normal, mood normal. [] Current Patient Data Vital Signs Vital Signs Date Time Temp Pulse Resp B/P (MAP) Pulse Ox O2 Delivery O2 Flow Rate FiO2 05/29/18 16:00 98.7 90 18 153/88 (109) 97 Nasal Cannula 3.0 Lab Results Laboratory Tests Test 05/29/18 14:18 05/29/18 14:38 05/29/18 16:00 05/29/18 16:13 Glucose (Fingerstick) 313 mg/dL (70-99) H White Blood Count 3.5 x10^3/uL (4.0-11.0) L Red Blood Count 3.18 x10^6/uL (3.50-5.40) L Hemoglobin 9.8 g/dL (12.0-15.5) L Hematocrit 28.3 % (36.0-47.0) L Mean Corpuscular Volume 89 fL (79-100) Mean Corpuscular Hemoglobin 31 pg (25-35) Mean Corpuscular Hemoglobin Concent 35 g/dL (31-37) Red Cell Distribution Width 15.9 % (11.5-14.5) H Platelet Count 60 x10^3/uL (140-400) L Neutrophils (%) (Auto) 72 % (31-73) Lymphocytes (%) (Auto) 13 % (24-48) L Monocytes (%) (Auto) 11 % (0-9) H Eosinophils (%) (Auto) 3 % (0-3) Basophils (%) (Auto) 1 % (0-3) Neutrophils # (Auto) 2.5 x10^3uL (1.8-7.7) Lymphocytes # (Auto) 0.5 x10^3/uL (1.0-4.8) L Monocytes # (Auto) 0.4 x10^3/uL (0.0-1.1) Eosinophils # (Auto) 0.1 x10^3/uL (0.0-0.7) Basophils # (Auto) 0.0 x10^3/uL (0.0-0.2) Sodium Level 137 mmol/L (136-145) Potassium Level 4.2 mmol/L (3.5-5.1) Chloride Level 103 mmol/L (98-107) Carbon Dioxide Level 27 mmol/L (21-32) Anion Gap 7 (6-14) Blood Urea Nitrogen 16 mg/dL (7-20) Creatinine 3.9 mg/dL (0.6-1.0) H Estimated GFR (Cockcroft-Gault) 11.4 Glucose Level 323 mg/dL (70-99) H Calcium Level 7.8 mg/dL (8.5-10.1) L C-Reactive Protein 22.1 mg/L (0-3.3) H QB-Jav-O-Type Natriuretic Peptide 6060 pg/mL (0-124) H Erythrocyte Sedimentation Rate 18 (0-25) Urine Collection Type Unknown Urine Color Yellow Urine Clarity Cloudy Urine pH 5.0 Urine Specific [place] 1.015 Urine Protein 100 mg/dl (NEG-TRACE) Urine Glucose (UA) 500 mg/dL (NEG) Urine Ketones (Stick) Neg mg/dL (NEG) Urine Blood Large (NEG) Urine Nitrite Neg (NEG) Urine Bilirubin Neg (NEG) Urine Urobilinogen Dipstick 0.2 mg/dL (0.2 mg/dL) Urine Leukocyte Esterase Mod (NEG) Urine RBC 20-40 /HPF (0-2) Urine WBC >40 /HPF (0-4) Urine Squamous Epithelial Cells Many /LPF Urine Transitional Epithelial Cells Few /LPF Urine Bacteria Mod /HPF (0-FEW) Urine Granular Casts Occ /HPF EKG EKG ] Radiology/Procedures Radiology/Procedures [CT head: No acute findings X-ray left foot: Pending X-ray left knee: Pending Chest x-ray: Pending] Course & Med Decision Making Course & Med Decision Making Pertinent Labs and Imaging studies reviewed. (See chart for details) [Patient acute cephalopathy suspect related to hyperammonemia. Additional required hospital admission. Dr. Baldo Garcia accepts to patient as the patient is requiring dialysis services not provided at this facility. First dose of antibiotics given for possible left leg cellulitis.] Final Impression Final Impression [#1 acute cephalopathy #2 left leg/knee pain] Dragon Disclaimer Dragon Disclaimer This electronic medical record was generated, in whole or in part, using a voice recognition dictation system. BISMARK OSORIO DO May 29, 2018 16:46
[2018-05-29 16:50] LABS: COLOR,URINE YELLOW
[2018-05-29 16:51] LABS: BACTERIA,URINE MOD /HPF (0-FEW); BILIRUBIN,URINE NEG (NEG); CLARITY,URINE CLOUDY; GLUCOSE,URINE 500 mg/dL (NEG); NITRITE,URINE NEG (NEG); UROBILINOGEN,URINE 0.2 mg/dL (0.2 mg/dL); WBC,URINE >40 /HPF (0-4)
[2018-05-29 16:52] LABS: GRANULAR CASTS,URINE OCC /HPF; RBC,URINE 20-40 /HPF (0-2); SQUAMOUS EPITHELIAL CELL,UR MANY /LPF
--- NOTE | 2018-05-29 17:41 | RAD ---
PQRS Compliance statement: One or more of the following individualized dose reduction techniques were utilized for this examination: 1. Automated exposure control. 2. Adjustment of the mA and/or kV according to patient size. 3. Use of iterative reconstruction technique. Indication:PT FALL TODAY, AMS TECHNIQUE: CT head without IV contrast COMPARISON:01/30/2018 FINDINGS: No pathologic extra-axial or intra-axial fluid collection. Mild diffuse cerebral atrophy. The ventricles and basal cisterns are within normal limits. No acute intracranial bleed. Confluent low-attenuation is seen in the periventricular and deep white matter. No focal loss of bonilla-white differentiation. Orbits are within normal limits. No acute calvarial fractures. Visualized paranasal sinuses and mastoid air cells are clear. Diffuse atherosclerotic disease seen of the bilateral cavernous segments of the ICA. IMPRESSION: 1. No acute intracranial process. 2. Mild white matter changes most likely secondary to chronic microvascular ischemic disease. Electronically signed by: Laci Armstrong DO (05/29/2018 5:38 PM) [facility]
[2018-05-29 18:44] VITALS: BP 154/53
--- NOTE | 2018-05-30 08:10 | RAD ---
Right foot, 3 views, 05/29/2018: HISTORY: Pain, possible osteomyelitis There is moderate bony demineralization. There is fragmentation and disorganization of the tarsal bones at the mid foot level. The findings suggest neuropathic and/or old posttraumatic changes with severe secondary osteoarthritis. There are moderate degenerative changes at the calcaneocuboid and talonavicular articulations. No acute fracture or destructive bony lesion is seen. There is generalized soft tissue swelling and edema. Extensive arterial calcifications are present. IMPRESSION: Bony fragmentation and disorganization of the tarsal bones at the mid foot level compatible with neuropathic or old posttraumatic changes with severe secondary osteoarthritis. Electronically signed by: Cory Calhoun MD (05/30/2018 8:07 AM) [facility]
== END 2018-05-29 20:31 | disposition short-term general hospital (02) ==
LOC: ER 13:51
DX: G93.40 Encephalopathy, unspecified (principal); M25.562 Pain in left knee; R22.43 Localized swelling, mass and lump, lower limb, bilateral; J44.9 Chronic obstructive pulmonary disease, unspecified; E11.9 Type 2 diabetes mellitus without complications; E11.22 Type 2 diabetes mellitus with diabetic chronic kidney disease; N18.6 End stage renal disease; Z99.2 Dependence on renal dialysis; Z90.710 Acquired absence of both cervix and uterus; X50.1XXA Overexertion from prolonged static or awkward postures, initial encounter; Y93.89 Activity, other specified; Y92.89 Other specified places as the place of occurrence of the external cause; Y99.8 Other external cause status
CPT/HCPCS: 36415; 70450; 71045; 73562; 73630; 80048; 81001; 82140; 82947; 83880; 85025; 85651; 86140; 87040; 87086; 99285

== ENCOUNTER 2018-08-23 18:03 | Inpatient (IN) | payer MEDICARE, OTHER ==
[~2018-08-23] VITALS: Ht 152.4 cm; Wt 74.2 kg
[~2018-08-23 18:03] MED LIST changes: +HYDR-3165 PO; -HYDR-971 PO
[2018-08-23 18:32] VITALS: BP 119/43
[2018-08-23] MEDS ORDERED: CIPR250T30 PO (21:02)
[2018-08-23] MEDS ORDERED: INSU100I13 SQ (21:02)
[2018-08-23] MEDS ORDERED: LACT1CAP19 PO (21:02)
[2018-08-23] MEDS ORDERED: tiZANidine 4 MG TABLET. PO PRN (21:15)
[2018-08-23] MEDS ORDERED: ONDANSETRON ODT 4 MG TAB.RAPDIS PO PRN (21:15)
[2018-08-23] MEDS ORDERED: LACTULOSE 20 GM/30 ML SOLUTION. PO PRN (21:15)
[2018-08-23] MEDS ORDERED: MULT1TAB52 PO (21:16)
[2018-08-23] MEDS ORDERED: MECL25TA3 PO (21:16)
[2018-08-23] MEDS ORDERED: TIZA4TAB PO (21:16)
[2018-08-23] MEDS ORDERED: ISOS30TA4 PO (21:16)
[2018-08-23] MEDS: rifAXIMin 550 MG TABLET PO SCH (21:50)
[2018-08-23] MEDS: INSULIN GLARGINE 300 UNITS/3 ML INSULN.PEN. SQ SCH (21:51)
[2018-08-24] MEDS: ZOLPIDEM 5 MG TABLET. PO PRN ×2 (01:05→23:55)
[2018-08-24 05:35] VITALS: BP 146/58
[2018-08-24] MEDS: LEVOTHYROXINE 175 MCG TABLET PO SCH (05:47)
[2018-08-24] MEDS: INSULIN LISPRO 300 UNITS/3 ML INSULN.PEN. SQ SCH ×3 (07:30→16:53)
[2018-08-24] MEDS: GABAPENTIN 100 MG CAPSULE. PO SCH (09:00)
[2018-08-24] MEDS: rifAXIMin 550 MG TABLET PO SCH ×2 (09:00→20:16)
[2018-08-24] MEDS: ASPIRIN 325 MG TABLET PO SCH (09:00)
[2018-08-24] MEDS: cloNIDine HCL 0.2 MG TABLET PO SCH (09:00)
[2018-08-24] MEDS: MULTIVITAMIN I-VITE TABLET. PO SCH (09:00)
[2018-08-24] MEDS: ISOSORBIDE MONONITRATE ER 30 MG TAB.ER.24H PO SCH (09:00)
[2018-08-24] MEDS: METOPROLOL SUCC 24HR ER 25 MG TAB.ER.24H. PO SCH (09:00)
[2018-08-24] MEDS: SERTRALINE 50 MG TABLET. PO SCH (09:00)
[2018-08-24] MEDS: DICLOFENAC SODIUM 1% TOPICAL GEL 100GM TUBE. TP SCH ×2 (09:00→21:00)
[2018-08-24] MEDS: MECLIZINE 12.5 MG TABLET. PO SCH ×3 (09:18→20:16)
[2018-08-24] MEDS: FAMOTIDINE 20 MG TABLET PO SCH (09:18)
[2018-08-24] MEDS: SEVELAMER CARBONATE 800 MG TABLET. PO SCH ×3 (09:18→20:16)
[2018-08-24] MEDS: CIPROFLOXACIN HCL 250 MG TABLET PO SCH (16:52)
[2018-08-24] MEDS: LACTOBACILLUS RHAMNOSUS GG 1 CAPSULE. PO SCH ×2 (16:52→20:16)
[2018-08-24 19:36] VITALS: BP 135/50
[2018-08-24] MEDS: INSULIN GLARGINE 300 UNITS/3 ML INSULN.PEN. SQ SCH (22:02)
[2018-08-24] MEDS: HYDROcodone/APAP 5/325MG 1 TAB TABLET PO PRN (22:04)
[2018-08-25 05:40] VITALS: BP 143/82
[2018-08-25] MEDS: LEVOTHYROXINE 175 MCG TABLET PO SCH (05:58)
[2018-08-25] MEDS: MULTIVITAMIN I-VITE TABLET. PO SCH (07:57)
[2018-08-25] MEDS: GABAPENTIN 100 MG CAPSULE. PO SCH (07:58)
[2018-08-25] MEDS: MECLIZINE 12.5 MG TABLET. PO SCH ×3 (07:58→20:55)
[2018-08-25] MEDS: ISOSORBIDE MONONITRATE ER 30 MG TAB.ER.24H PO SCH (07:58)
[2018-08-25] MEDS: cloNIDine HCL 0.2 MG TABLET PO SCH (07:58)
[2018-08-25] MEDS: LACTOBACILLUS RHAMNOSUS GG 1 CAPSULE. PO SCH ×2 (07:58→20:55)
[2018-08-25] MEDS: SEVELAMER CARBONATE 800 MG TABLET. PO SCH ×3 (07:59→20:56)
[2018-08-25] MEDS: SERTRALINE 50 MG TABLET. PO SCH (07:59)
[2018-08-25] MEDS: CIPROFLOXACIN HCL 250 MG TABLET PO SCH (07:59)
[2018-08-25] MEDS: METOPROLOL SUCC 24HR ER 25 MG TAB.ER.24H. PO SCH (07:59)
[2018-08-25] MEDS: rifAXIMin 550 MG TABLET PO SCH ×2 (07:59→20:56)
[2018-08-25] MEDS: ASPIRIN 325 MG TABLET PO SCH (08:00)
[2018-08-25] MEDS: INSULIN LISPRO 300 UNITS/3 ML INSULN.PEN. SQ SCH ×3 (08:06→16:30)
[2018-08-25] MEDS: DICLOFENAC SODIUM 1% TOPICAL GEL 100GM TUBE. TP SCH ×2 (08:07→21:00)
--- NOTE | 2018-08-25 13:29 | HP ---
ADMIT DATE: 08/23/2018 HISTORY OF PRESENT ILLNESS: The patient is a 73-year-old female patient who was admitted to [facility] with infected right big toe cellulitis, paronychia, and also open wound on the plantar aspect of the right foot. She was seen by the Infectious Disease specialist as well as the orthopedic surgeon and apparently was transferred to [facility] to continue with the hemodialysis as an outpatient. Continue with wound care. Continue with oral antibiotic. She was treated initially with Zosyn and vancomycin, and she was switched to p.o. augmentin as per Dr. Loza's recommendation. However, for some reason, the patient is on ciprofloxacin. PAST MEDICAL HISTORY: Significant for chronic diastolic congestive heart failure, hypertension, hyperlipidemia, history of stroke, peripheral neuropathy, gastroesophageal reflux disease, cirrhosis of the liver, anxiety, depression, end-stage renal disease on hemodialysis, diabetes and hyperparathyroidism. PAST SURGICAL HISTORY: Significant for hysterectomy, left knee arthroscopic surgery. FAMILY HISTORY: Significant for hypertension. SOCIAL HISTORY: She is and lives with her . She does not drink alcohol and quit smoking in 1967 according to her. She does not use any drugs. ALLERGIES: She has no known drug allergies. MEDICATIONS: She is on ciprofloxacin 250 mg p.o. daily. She is on rifaximin 550 mg p.o. b.i.d., tizanidine 2 mg p.o. b.i.d., clonidine 0.2 mg daily, isosorbide mononitrate 30 mg daily, metoprolol succinate 25 mg extended release 1 tablet once a day, aspirin 325 mg once a day, diclofenac sodium 100 grams gel 1 gram topically twice a day, hydrocodone/APAP 5/325 3 tablets every 6 hours. She is on gabapentin 100 mg p.o. daily, sertraline 50 mg once a day, Ambien 5 mg daily p.r.n. at bedtime for insomnia. She is on lactulose 15 mL p.o. b.i.d., sevelamer carbonate for Renvela 800 mg 3 times a day, sodium bicarbonate 1300 mg 3 times a week, meclizine 25 mg 3 times a day, and ondansetron 4 mg p.o. q.6 hourly, famotidine 20 mg daily, lactobacillus rhamnosus 1 capsule twice a day. She is on Lantus insulin 10 units at bedtime and she is on Humalog insulin 5 units before meals, levothyroxine sodium 175 mcg daily, cholecalciferol for vitamin D 5000 international units once a day, multivitamin 1 tablet once a day. PHYSICAL EXAMINATION: GENERAL: When I examined her this morning, she was resting, slightly propped up in bed, no apparent distress. She was pale, but no jaundice, cyanosis or thyromegaly. No jugular venous distension. No lower limb edema. VITAL SIGNS: Her heart rate was 65, blood pressure 143/82, temperature was 98.2, respiratory rate was 16, and oxygen saturation was 97% on room air. HEAD, EYES, EAR, NOSE AND THROAT: Showed normocephalic, atraumatic. NECK: Supple. HEART: Showed normal first and second heart sounds. No gallop, rub or murmur. CHEST: Clear to auscultation. No crepitation or rhonchi. ABDOMEN: Distended, soft, nontender. NEUROLOGIC: She is awake, alert, responding appropriately. All cranial nerves intact. She moves extremities without difficulty. She has open wound in the plantar aspect of the right foot packed with iodoform gauze and covered with dressing. She has bilateral venous stasis on both lower extremities. LABORATORY DATA: She has no lab work done here. ASSESSMENT AND PLAN: This is a 73-year-old female patient who was admitted to [facility] with right big toe cellulitis and paronychia. She has also open wound on the plantar aspect of her right foot. She was transferred to our facility to continue with hemodialysis. Continue with wound care. Continue with antibiotic. Continue to monitor her blood sugar and adjust insulin as needed. CHRISTIANE NAVARRO MD DR: OPAL/gilda JOB#: [id number] / [id number]
--- NOTE | 2018-08-25 19:15 | HP ---
ADMIT DATE: 08/23/2018 HISTORY OF PRESENT ILLNESS: The patient is a 73-year-old female patient who was admitted to [facility] for recurrent falls and right big toe pain. She also has an open wound in the plantar surface of the right foot. She also reported that she has chronic lower extremity edema, right is worse, has chronic shortness of breath. CHRISTIANE NAVARRO MD DR: OPAL/gilda JOB#: [id number] / [id number]
[2018-08-25 19:51] VITALS: BP 176/73
[2018-08-25] MEDS: ZOLPIDEM 5 MG TABLET. PO PRN (21:04)
[2018-08-25] MEDS: INSULIN GLARGINE 300 UNITS/3 ML INSULN.PEN. SQ SCH (21:05)
[2018-08-26] MEDS: LEVOTHYROXINE 175 MCG TABLET PO SCH (05:27)
[2018-08-26 05:55] VITALS: BP 149/64
[2018-08-26] MEDS: LACTOBACILLUS RHAMNOSUS GG 1 CAPSULE. PO SCH ×2 (08:39→21:28)
[2018-08-26] MEDS: ISOSORBIDE MONONITRATE ER 30 MG TAB.ER.24H PO SCH (08:39)
[2018-08-26] MEDS: MULTIVITAMIN I-VITE TABLET. PO SCH (08:39)
[2018-08-26] MEDS: FAMOTIDINE 20 MG TABLET PO SCH (08:39)
[2018-08-26] MEDS: MECLIZINE 12.5 MG TABLET. PO SCH ×3 (08:39→21:28)
[2018-08-26] MEDS: SERTRALINE 50 MG TABLET. PO SCH (08:40)
[2018-08-26] MEDS: cloNIDine HCL 0.2 MG TABLET PO SCH (08:40)
[2018-08-26] MEDS: CIPROFLOXACIN HCL 250 MG TABLET PO SCH (08:40)
[2018-08-26] MEDS: GABAPENTIN 100 MG CAPSULE. PO SCH (08:40)
[2018-08-26] MEDS: rifAXIMin 550 MG TABLET PO SCH ×2 (08:40→21:28)
[2018-08-26] MEDS: METOPROLOL SUCC 24HR ER 25 MG TAB.ER.24H. PO SCH (08:40)
[2018-08-26] MEDS: SEVELAMER CARBONATE 800 MG TABLET. PO SCH ×3 (08:41→21:28)
[2018-08-26] MEDS: DICLOFENAC SODIUM 1% TOPICAL GEL 100GM TUBE. TP SCH ×3 (08:56→21:00)
[2018-08-26] MEDS: ASPIRIN 325 MG TABLET PO SCH (09:00)
[2018-08-26] MEDS: INSULIN LISPRO 300 UNITS/3 ML INSULN.PEN. SQ SCH ×3 (09:01→17:35)
[2018-08-26] MEDS: HYDROcodone/APAP 5/325MG 1 TAB TABLET PO PRN ×2 (14:47→21:29)
[2018-08-26] MEDS ORDERED: BENZOCAINE 20% ORAL GEL 11.9GM TUBE. TP PRN (17:15)
[2018-08-26 18:34] VITALS: BP 149/54
[2018-08-26 19:45] VITALS: BP 131/61
[2018-08-26] MEDS: INSULIN GLARGINE 300 UNITS/3 ML INSULN.PEN. SQ SCH (21:36)
[2018-08-27] MEDS: ZOLPIDEM 5 MG TABLET. PO PRN ×2 (01:29→21:26)
[2018-08-27 06:06] VITALS: BP 130/52
[2018-08-27] MEDS: LEVOTHYROXINE 175 MCG TABLET PO SCH (06:09)
[2018-08-27] MEDS: INSULIN LISPRO 300 UNITS/3 ML INSULN.PEN. SQ SCH ×3 (08:18→17:36)
[2018-08-27] MEDS: SEVELAMER CARBONATE 800 MG TABLET. PO SCH ×4 (09:00→21:24)
[2018-08-27] MEDS: DICLOFENAC SODIUM 1% TOPICAL GEL 100GM TUBE. TP SCH ×2 (09:00→21:00)
[2018-08-27] MEDS: rifAXIMin 550 MG TABLET PO SCH ×2 (09:00→21:24)
[2018-08-27] MEDS: MECLIZINE 12.5 MG TABLET. PO SCH ×3 (09:00→21:00)
[2018-08-27] MEDS: LACTOBACILLUS RHAMNOSUS GG 1 CAPSULE. PO SCH ×2 (09:00→21:24)
[2018-08-27] MEDS: ASPIRIN 325 MG TABLET PO SCH (15:36)
[2018-08-27] MEDS: ISOSORBIDE MONONITRATE ER 30 MG TAB.ER.24H PO SCH (15:37)
[2018-08-27 15:38] VITALS: BP 176/68
[2018-08-27] MEDS: GABAPENTIN 100 MG CAPSULE. PO SCH (15:38)
[2018-08-27] MEDS: METOPROLOL SUCC 24HR ER 25 MG TAB.ER.24H. PO SCH (15:38)
[2018-08-27] MEDS: CIPROFLOXACIN HCL 250 MG TABLET PO SCH (15:38)
[2018-08-27] MEDS: MULTIVITAMIN I-VITE TABLET. PO SCH (15:38)
[2018-08-27] MEDS: cloNIDine HCL 0.2 MG TABLET PO SCH (15:39)
[2018-08-27] MEDS: SERTRALINE 50 MG TABLET. PO SCH (15:39)
[2018-08-27] MEDS: HYDROcodone/APAP 5/325MG 1 TAB TABLET PO PRN (15:41)
[2018-08-27] MEDS ORDERED: SODI650T PO (15:46)
[2018-08-27] MEDS ORDERED: FOLI0.8T33 PO (15:54)
[2018-08-27 20:47] VITALS: BP 121/66
[2018-08-27] MEDS: INSULIN GLARGINE 300 UNITS/3 ML INSULN.PEN. SQ SCH (21:34)
[2018-08-28] MEDS: LEVOTHYROXINE 175 MCG TABLET PO SCH (05:06)
[2018-08-28 05:17] VITALS: BP 150/54
[2018-08-28] MEDS: INSULIN LISPRO 300 UNITS/3 ML INSULN.PEN. SQ SCH ×3 (08:10→17:10)
[2018-08-28] MEDS: FOLIC/VIT B COMP W-C (RENAL) TABLET. PO SCH (08:10)
[2018-08-28] MEDS: ASPIRIN 325 MG TABLET PO SCH (08:11)
[2018-08-28] MEDS: ISOSORBIDE MONONITRATE ER 30 MG TAB.ER.24H PO SCH (08:11)
[2018-08-28] MEDS: cloNIDine HCL 0.2 MG TABLET PO SCH (08:11)
[2018-08-28] MEDS: FAMOTIDINE 20 MG TABLET PO SCH (08:12)
[2018-08-28] MEDS: MECLIZINE 12.5 MG TABLET. PO SCH ×3 (08:12→20:57)
[2018-08-28] MEDS: SERTRALINE 50 MG TABLET. PO SCH (08:12)
[2018-08-28] MEDS: LACTOBACILLUS RHAMNOSUS GG 1 CAPSULE. PO SCH ×2 (08:12→20:55)
[2018-08-28] MEDS: CIPROFLOXACIN HCL 250 MG TABLET PO SCH (08:12)
[2018-08-28] MEDS: GABAPENTIN 100 MG CAPSULE. PO SCH (08:13)
[2018-08-28] MEDS: METOPROLOL SUCC 24HR ER 25 MG TAB.ER.24H. PO SCH (08:13)
[2018-08-28] MEDS: rifAXIMin 550 MG TABLET PO SCH ×2 (08:13→20:55)
[2018-08-28] MEDS: SEVELAMER CARBONATE 800 MG TABLET. PO SCH ×3 (08:14→20:56)
[2018-08-28] MEDS ORDERED: SODIUM BICARBONATE 650 MG TABLET PO SCH (09:00)
[2018-08-28] MEDS: SODIUM BICARBONATE 650 MG TABLET PO SCH (09:00)
[2018-08-28] MEDS: DICLOFENAC SODIUM 1% TOPICAL GEL 100GM TUBE. TP SCH ×3 (09:00→21:00)
[2018-08-28 14:54] VITALS: BP 123/63
[2018-08-28 18:02] VITALS: BP 161/54
[2018-08-28] MEDS: ZOLPIDEM 5 MG TABLET. PO PRN (20:55)
[2018-08-28] MEDS: INSULIN GLARGINE 300 UNITS/3 ML INSULN.PEN. SQ SCH (21:38)
[2018-08-28] MEDS: HYDROcodone/APAP 5/325MG 1 TAB TABLET PO PRN (22:34)
[2018-08-29] MEDS: LEVOTHYROXINE 175 MCG TABLET PO SCH (06:03)
[2018-08-29 06:27] VITALS: BP 136/53
[2018-08-29] MEDS: INSULIN LISPRO 300 UNITS/3 ML INSULN.PEN. SQ SCH ×3 (08:11→17:14)
[2018-08-29] MEDS: MECLIZINE 12.5 MG TABLET. PO SCH ×3 (08:46→20:53)
[2018-08-29] MEDS: LACTOBACILLUS RHAMNOSUS GG 1 CAPSULE. PO SCH ×2 (08:47→20:54)
[2018-08-29] MEDS: ASPIRIN 325 MG TABLET PO SCH (08:47)
[2018-08-29] MEDS: SEVELAMER CARBONATE 800 MG TABLET. PO SCH ×3 (08:48→20:54)
[2018-08-29] MEDS: rifAXIMin 550 MG TABLET PO SCH ×2 (08:49→20:54)
[2018-08-29] MEDS: DICLOFENAC SODIUM 1% TOPICAL GEL 100GM TUBE. TP SCH ×2 (08:49→21:00)
[2018-08-29 16:08] VITALS: BP 169/70
[2018-08-29] MEDS: cloNIDine HCL 0.2 MG TABLET PO SCH (16:10)
[2018-08-29] MEDS: CIPROFLOXACIN HCL 250 MG TABLET PO SCH (16:10)
[2018-08-29] MEDS: FOLIC/VIT B COMP W-C (RENAL) TABLET. PO SCH (16:11)
[2018-08-29] MEDS: ISOSORBIDE MONONITRATE ER 30 MG TAB.ER.24H PO SCH (16:11)
[2018-08-29] MEDS: METOPROLOL SUCC 24HR ER 25 MG TAB.ER.24H. PO SCH (16:12)
[2018-08-29] MEDS: HYDROcodone/APAP 5/325MG 1 TAB TABLET PO PRN (16:14)
[2018-08-29] MEDS: SERTRALINE 50 MG TABLET. PO SCH (16:17)
[2018-08-29] MEDS: GABAPENTIN 100 MG CAPSULE. PO SCH (16:17)
[2018-08-29 18:32] VITALS: BP 88/43
[2018-08-29 19:00] VITALS: BP 109/49
[2018-08-29] MEDS: ZOLPIDEM 5 MG TABLET. PO PRN (20:54)
[2018-08-29] MEDS: INSULIN GLARGINE 300 UNITS/3 ML INSULN.PEN. SQ SCH (21:24)
[2018-08-30 05:07] VITALS: BP 122/46
[2018-08-30] MEDS: LEVOTHYROXINE 175 MCG TABLET PO SCH (05:13)
[2018-08-30 06:20] VITALS: BP 158/67
[2018-08-30] MEDS: INSULIN LISPRO 300 UNITS/3 ML INSULN.PEN. SQ SCH ×3 (08:02→17:10)
[2018-08-30] MEDS: ASPIRIN 325 MG TABLET PO SCH (08:04)
[2018-08-30] MEDS: ISOSORBIDE MONONITRATE ER 30 MG TAB.ER.24H PO SCH (08:04)
[2018-08-30] MEDS: SEVELAMER CARBONATE 800 MG TABLET. PO SCH ×3 (08:04→20:22)
[2018-08-30] MEDS: FAMOTIDINE 20 MG TABLET PO SCH (08:04)
[2018-08-30] MEDS: cloNIDine HCL 0.2 MG TABLET PO SCH (08:05)
[2018-08-30] MEDS: METOPROLOL SUCC 24HR ER 25 MG TAB.ER.24H. PO SCH (08:05)
[2018-08-30] MEDS: LACTOBACILLUS RHAMNOSUS GG 1 CAPSULE. PO SCH ×2 (08:05→20:22)
[2018-08-30] MEDS: CHOLECALCIFEROL (VITAMIN D3) 50,000 UNIT CAPSULE PO SCH (08:05)
[2018-08-30] MEDS: rifAXIMin 550 MG TABLET PO SCH ×2 (08:05→20:22)
[2018-08-30] MEDS: CIPROFLOXACIN HCL 250 MG TABLET PO SCH (08:05)
[2018-08-30] MEDS: FOLIC/VIT B COMP W-C (RENAL) TABLET. PO SCH (08:05)
[2018-08-30] MEDS: GABAPENTIN 100 MG CAPSULE. PO SCH (08:06)
[2018-08-30] MEDS: SERTRALINE 50 MG TABLET. PO SCH (08:06)
[2018-08-30] MEDS: DICLOFENAC SODIUM 1% TOPICAL GEL 100GM TUBE. TP SCH ×2 (08:06→20:23)
[2018-08-30] MEDS: MECLIZINE 12.5 MG TABLET. PO SCH ×3 (08:22→20:22)
[2018-08-30] MEDS: SODIUM BICARBONATE 650 MG TABLET PO SCH (08:22)
[2018-08-30 18:33] VITALS: BP 126/49
[2018-08-30] MEDS: INSULIN GLARGINE 300 UNITS/3 ML INSULN.PEN. SQ SCH (20:22)
[2018-08-30] MEDS: ZOLPIDEM 5 MG TABLET. PO PRN (21:04)
[2018-08-31] MEDS: HYDROcodone/APAP 5/325MG 1 TAB TABLET PO PRN ×3 (00:45→21:44)
[2018-08-31 01:26] LABS: BILIRUBIN,URINE NEG (NEG); CLARITY,URINE CLOUDY; COLOR,URINE AMBER; GLUCOSE,URINE 100 mg/dL (NEG)
[2018-08-31 01:27] LABS: BACTERIA,URINE MANY /HPF (0-FEW); GRANULAR CASTS,URINE FEW /HPF; NITRITE,URINE NEG (NEG); SQUAMOUS EPITHELIAL CELL,UR MANY /LPF; UROBILINOGEN,URINE 0.2 mg/dL (0.2 mg/dL); WBC,URINE TNTC /HPF (0-4)
[2018-08-31] MEDS: LEVOTHYROXINE 175 MCG TABLET PO SCH (04:29)
[2018-08-31 05:00] VITALS: BP 129/45
[2018-08-31] MEDS: SERTRALINE 50 MG TABLET. PO SCH (08:11)
[2018-08-31] MEDS: LACTOBACILLUS RHAMNOSUS GG 1 CAPSULE. PO SCH ×2 (08:11→20:40)
[2018-08-31] MEDS: METOPROLOL SUCC 24HR ER 25 MG TAB.ER.24H. PO SCH (08:11)
[2018-08-31] MEDS: MECLIZINE 12.5 MG TABLET. PO SCH ×3 (08:11→20:40)
[2018-08-31] MEDS: GABAPENTIN 100 MG CAPSULE. PO SCH (08:12)
[2018-08-31] MEDS: CIPROFLOXACIN HCL 250 MG TABLET PO SCH (08:12)
[2018-08-31] MEDS: ISOSORBIDE MONONITRATE ER 30 MG TAB.ER.24H PO SCH (08:12)
[2018-08-31] MEDS: cloNIDine HCL 0.2 MG TABLET PO SCH (08:12)
[2018-08-31] MEDS: SEVELAMER CARBONATE 800 MG TABLET. PO SCH ×3 (08:13→20:41)
[2018-08-31] MEDS: FOLIC/VIT B COMP W-C (RENAL) TABLET. PO SCH (08:13)
[2018-08-31] MEDS: rifAXIMin 550 MG TABLET PO SCH ×2 (08:13→20:41)
[2018-08-31] MEDS: ASPIRIN 325 MG TABLET PO SCH (08:16)
[2018-08-31] MEDS: INSULIN LISPRO 300 UNITS/3 ML INSULN.PEN. SQ SCH ×3 (08:32→17:07)
[2018-08-31] MEDS: DICLOFENAC SODIUM 1% TOPICAL GEL 100GM TUBE. TP SCH ×2 (08:35→21:00)
[2018-08-31] MEDS: INSULIN GLARGINE 300 UNITS/3 ML INSULN.PEN. SQ SCH (21:05)
[2018-08-31 21:14] VITALS: BP 144/56
[2018-09-01] MEDS: LEVOTHYROXINE 175 MCG TABLET PO SCH (05:57)
[2018-09-01] MEDS: GABAPENTIN 100 MG CAPSULE. PO SCH (08:32)
[2018-09-01] MEDS: FAMOTIDINE 20 MG TABLET PO SCH (08:32)
[2018-09-01] MEDS: ISOSORBIDE MONONITRATE ER 30 MG TAB.ER.24H PO SCH (08:32)
[2018-09-01] MEDS: MECLIZINE 12.5 MG TABLET. PO SCH ×3 (08:32→20:54)
[2018-09-01] MEDS: METOPROLOL SUCC 24HR ER 25 MG TAB.ER.24H. PO SCH (08:32)
[2018-09-01] MEDS: LACTOBACILLUS RHAMNOSUS GG 1 CAPSULE. PO SCH ×2 (08:33→20:53)
[2018-09-01] MEDS: SERTRALINE 50 MG TABLET. PO SCH (08:33)
[2018-09-01] MEDS: FOLIC/VIT B COMP W-C (RENAL) TABLET. PO SCH (08:34)
[2018-09-01] MEDS: SEVELAMER CARBONATE 800 MG TABLET. PO SCH ×3 (08:34→20:53)
[2018-09-01] MEDS: rifAXIMin 550 MG TABLET PO SCH ×2 (08:35→20:53)
[2018-09-01] MEDS: DICLOFENAC SODIUM 1% TOPICAL GEL 100GM TUBE. TP SCH ×2 (08:35→20:54)
[2018-09-01] MEDS: ASPIRIN 325 MG TABLET PO SCH (08:35)
[2018-09-01] MEDS: INSULIN LISPRO 300 UNITS/3 ML INSULN.PEN. SQ SCH ×3 (08:36→17:34)
[2018-09-01] MEDS: cloNIDine HCL 0.2 MG TABLET PO SCH (08:38)
[2018-09-01] MEDS ORDERED: traMADol 50 MG TABLET PO PRN (12:15)
[2018-09-01] MEDS: HYDROcodone/APAP 5/325MG 1 TAB TABLET PO PRN ×2 (13:02→23:50)
[2018-09-01 14:29] LABS: CREATININE 5.5 mg/dL (0.6-1.0); GFR 7.6
[2018-09-01] MEDS: INSULIN GLARGINE 300 UNITS/3 ML INSULN.PEN. SQ SCH (20:53)
[2018-09-01] MEDS: DOXYCYCLINE HYCLATE 100 MG TABLET PO SCH (20:54)
[2018-09-01] MEDS ORDERED: NITROFURANTOIN MONOHYD/M-CRYST 100 MG CAPSULE. PO SCH (21:00)
[2018-09-01] MEDS: ZOLPIDEM 5 MG TABLET. PO PRN (23:50)
[2018-09-02] MEDS: LEVOTHYROXINE 175 MCG TABLET PO SCH (05:43)
[2018-09-02 05:53] VITALS: BP 176/50
[2018-09-02] MEDS: GABAPENTIN 100 MG CAPSULE. PO SCH (08:58)
[2018-09-02] MEDS: ISOSORBIDE MONONITRATE ER 30 MG TAB.ER.24H PO SCH (08:59)
[2018-09-02] MEDS: DOXYCYCLINE HYCLATE 100 MG TABLET PO SCH ×2 (08:59→21:10)
[2018-09-02] MEDS: SERTRALINE 50 MG TABLET. PO SCH (08:59)
[2018-09-02] MEDS: LACTOBACILLUS RHAMNOSUS GG 1 CAPSULE. PO SCH ×2 (08:59→21:10)
[2018-09-02] MEDS: ASPIRIN 325 MG TABLET PO SCH (08:59)
[2018-09-02] MEDS: METOPROLOL SUCC 24HR ER 25 MG TAB.ER.24H. PO SCH (08:59)
[2018-09-02] MEDS: cloNIDine HCL 0.2 MG TABLET PO SCH (08:59)
[2018-09-02] MEDS: MECLIZINE 12.5 MG TABLET. PO SCH ×3 (09:00→21:10)
[2018-09-02] MEDS: rifAXIMin 550 MG TABLET PO SCH ×2 (09:00→21:10)
[2018-09-02] MEDS: SEVELAMER CARBONATE 800 MG TABLET. PO SCH ×3 (09:00→21:10)
[2018-09-02] MEDS: SODIUM BICARBONATE 650 MG TABLET PO SCH (09:00)
[2018-09-02] MEDS: FOLIC/VIT B COMP W-C (RENAL) TABLET. PO SCH (09:00)
[2018-09-02] MEDS: DICLOFENAC SODIUM 1% TOPICAL GEL 100GM TUBE. TP SCH ×2 (09:01→21:11)
[2018-09-02] MEDS: INSULIN LISPRO 300 UNITS/3 ML INSULN.PEN. SQ SCH ×3 (09:06→16:30)
[2018-09-02] MEDS: HYDROcodone/APAP 5/325MG 1 TAB TABLET PO PRN ×2 (10:12→21:31)
[2018-09-02] MEDS: INSULIN GLARGINE 300 UNITS/3 ML INSULN.PEN. SQ SCH (21:30)
[2018-09-03 04:11] VITALS: BP 149/67
[2018-09-03] MEDS: LEVOTHYROXINE 175 MCG TABLET PO SCH (06:06)
[2018-09-03] MEDS: MECLIZINE 12.5 MG TABLET. PO SCH ×3 (07:38→21:00)
[2018-09-03] MEDS: cloNIDine HCL 0.2 MG TABLET PO SCH (07:39)
[2018-09-03] MEDS: SEVELAMER CARBONATE 800 MG TABLET. PO SCH ×3 (07:39→21:00)
[2018-09-03] MEDS: INSULIN LISPRO 300 UNITS/3 ML INSULN.PEN. SQ SCH ×3 (08:40→17:09)
[2018-09-03] MEDS: DOXYCYCLINE HYCLATE 100 MG TABLET PO SCH ×2 (09:00→21:00)
[2018-09-03] MEDS: DICLOFENAC SODIUM 1% TOPICAL GEL 100GM TUBE. TP SCH ×2 (09:00→21:00)
[2018-09-03] MEDS: LACTOBACILLUS RHAMNOSUS GG 1 CAPSULE. PO SCH ×2 (09:00→21:00)
[2018-09-03] MEDS: rifAXIMin 550 MG TABLET PO SCH ×2 (09:00→21:00)
[2018-09-03 16:37] VITALS: BP 168/59
[2018-09-03] MEDS: GABAPENTIN 100 MG CAPSULE. PO SCH (17:05)
[2018-09-03] MEDS: SERTRALINE 50 MG TABLET. PO SCH (17:05)
[2018-09-03] MEDS: ASPIRIN 325 MG TABLET PO SCH (17:06)
[2018-09-03] MEDS: METOPROLOL SUCC 24HR ER 25 MG TAB.ER.24H. PO SCH (17:06)
[2018-09-03] MEDS: FAMOTIDINE 20 MG TABLET PO SCH (17:06)
[2018-09-03] MEDS: FOLIC/VIT B COMP W-C (RENAL) TABLET. PO SCH (17:07)
[2018-09-03] MEDS: ISOSORBIDE MONONITRATE ER 30 MG TAB.ER.24H PO SCH (17:07)
[2018-09-03 19:33] VITALS: BP 147/56
[2018-09-03] MEDS: HYDROcodone/APAP 5/325MG 1 TAB TABLET PO PRN (19:53)
[2018-09-03] MEDS: INSULIN GLARGINE 300 UNITS/3 ML INSULN.PEN. SQ SCH (21:06)
[2018-09-04 04:33] VITALS: BP 155/55
[2018-09-04] MEDS: LEVOTHYROXINE 175 MCG TABLET PO SCH (04:57)
[2018-09-04] MEDS: LACTOBACILLUS RHAMNOSUS GG 1 CAPSULE. PO SCH ×2 (08:07→20:40)
[2018-09-04] MEDS: DOXYCYCLINE HYCLATE 100 MG TABLET PO SCH ×2 (08:07→20:40)
[2018-09-04] MEDS: SERTRALINE 50 MG TABLET. PO SCH (08:07)
[2018-09-04] MEDS: MECLIZINE 12.5 MG TABLET. PO SCH ×3 (08:07→20:40)
[2018-09-04] MEDS: ASPIRIN 325 MG TABLET PO SCH (08:07)
[2018-09-04] MEDS: METOPROLOL SUCC 24HR ER 25 MG TAB.ER.24H. PO SCH (08:08)
[2018-09-04] MEDS: ISOSORBIDE MONONITRATE ER 30 MG TAB.ER.24H PO SCH (08:08)
[2018-09-04] MEDS: cloNIDine HCL 0.2 MG TABLET PO SCH (08:08)
[2018-09-04] MEDS: GABAPENTIN 100 MG CAPSULE. PO SCH (08:09)
[2018-09-04] MEDS: rifAXIMin 550 MG TABLET PO SCH ×2 (08:09→20:40)
[2018-09-04] MEDS: SEVELAMER CARBONATE 800 MG TABLET. PO SCH ×3 (08:09→20:40)
[2018-09-04] MEDS: FOLIC/VIT B COMP W-C (RENAL) TABLET. PO SCH (08:09)
[2018-09-04] MEDS: DICLOFENAC SODIUM 1% TOPICAL GEL 100GM TUBE. TP SCH ×2 (08:11→20:40)
[2018-09-04] MEDS: INSULIN LISPRO 300 UNITS/3 ML INSULN.PEN. SQ SCH ×3 (08:23→17:31)
[2018-09-04] MEDS: SODIUM BICARBONATE 650 MG TABLET PO SCH (09:00)
[2018-09-04] MEDS: HYDROcodone/APAP 5/325MG 1 TAB TABLET PO PRN (11:10)
[2018-09-04 18:17] VITALS: BP 110/58
[2018-09-04] MEDS: INSULIN GLARGINE 300 UNITS/3 ML INSULN.PEN. SQ SCH (20:50)
[2018-09-05] MEDS: LEVOTHYROXINE 175 MCG TABLET PO SCH (05:31)
[2018-09-05 05:52] VITALS: BP 124/55
[2018-09-05] MEDS: INSULIN LISPRO 300 UNITS/3 ML INSULN.PEN. SQ SCH ×3 (07:29→16:57)
[2018-09-05] MEDS: SEVELAMER CARBONATE 800 MG TABLET. PO SCH ×3 (07:33→20:36)
[2018-09-05] MEDS: rifAXIMin 550 MG TABLET PO SCH ×2 (07:35→20:36)
[2018-09-05] MEDS: MECLIZINE 12.5 MG TABLET. PO SCH ×3 (09:00→20:33)
[2018-09-05] MEDS: LACTOBACILLUS RHAMNOSUS GG 1 CAPSULE. PO SCH ×2 (09:00→20:32)
[2018-09-05] MEDS: FAMOTIDINE 20 MG TABLET PO SCH (09:00)
[2018-09-05] MEDS: ASPIRIN 325 MG TABLET PO SCH ×2 (09:00→15:30)
[2018-09-05] MEDS: METOPROLOL SUCC 24HR ER 25 MG TAB.ER.24H. PO SCH (09:00)
[2018-09-05] MEDS: SODIUM BICARBONATE 650 MG TABLET PO SCH (09:13)
[2018-09-05] MEDS: DOXYCYCLINE HYCLATE 100 MG TABLET PO SCH ×2 (15:30→20:33)
[2018-09-05] MEDS: GABAPENTIN 100 MG CAPSULE. PO SCH (15:30)
[2018-09-05] MEDS: SERTRALINE 50 MG TABLET. PO SCH (15:31)
[2018-09-05] MEDS: cloNIDine HCL 0.2 MG TABLET PO SCH (15:34)
[2018-09-05] MEDS: ISOSORBIDE MONONITRATE ER 30 MG TAB.ER.24H PO SCH (15:34)
[2018-09-05] MEDS: DICLOFENAC SODIUM 1% TOPICAL GEL 100GM TUBE. TP SCH ×2 (15:38→20:37)
[2018-09-05] MEDS: FOLIC/VIT B COMP W-C (RENAL) TABLET. PO SCH (15:38)
[2018-09-05 15:42] VITALS: BP 170/60
[2018-09-05 18:00] VITALS: BP 116/43
[2018-09-05] MEDS: HYDROcodone/APAP 5/325MG 1 TAB TABLET PO PRN (20:35)
[2018-09-05] MEDS: INSULIN GLARGINE 300 UNITS/3 ML INSULN.PEN. SQ SCH (20:46)
[2018-09-06 05:23] VITALS: BP 143/71
[2018-09-06] MEDS: LEVOTHYROXINE 175 MCG TABLET PO SCH (05:33)
[2018-09-06] MEDS: MECLIZINE 12.5 MG TABLET. PO SCH ×3 (08:13→21:04)
[2018-09-06] MEDS: ASPIRIN 325 MG TABLET PO SCH (08:13)
[2018-09-06] MEDS: LACTOBACILLUS RHAMNOSUS GG 1 CAPSULE. PO SCH ×2 (08:14→21:04)
[2018-09-06] MEDS: ISOSORBIDE MONONITRATE ER 30 MG TAB.ER.24H PO SCH (08:14)
[2018-09-06] MEDS: SERTRALINE 50 MG TABLET. PO SCH (08:14)
[2018-09-06] MEDS: DOXYCYCLINE HYCLATE 100 MG TABLET PO SCH ×2 (08:14→21:04)
[2018-09-06] MEDS: GABAPENTIN 100 MG CAPSULE. PO SCH (08:14)
[2018-09-06] MEDS: METOPROLOL SUCC 24HR ER 25 MG TAB.ER.24H. PO SCH (08:14)
[2018-09-06] MEDS: cloNIDine HCL 0.2 MG TABLET PO SCH (08:14)
[2018-09-06] MEDS: SEVELAMER CARBONATE 800 MG TABLET. PO SCH ×3 (08:15→21:05)
[2018-09-06] MEDS: FOLIC/VIT B COMP W-C (RENAL) TABLET. PO SCH (08:15)
[2018-09-06] MEDS: CHOLECALCIFEROL (VITAMIN D3) 50,000 UNIT CAPSULE PO SCH (08:16)
[2018-09-06] MEDS: DICLOFENAC SODIUM 1% TOPICAL GEL 100GM TUBE. TP SCH ×2 (08:16→21:04)
[2018-09-06] MEDS: rifAXIMin 550 MG TABLET PO SCH ×2 (08:16→21:05)
[2018-09-06] MEDS: INSULIN LISPRO 300 UNITS/3 ML INSULN.PEN. SQ SCH ×3 (08:25→17:38)
[2018-09-06 18:02] VITALS: BP 148/55
[2018-09-06] MEDS: HYDROcodone/APAP 5/325MG 1 TAB TABLET PO PRN (21:05)
[2018-09-06] MEDS: INSULIN GLARGINE 300 UNITS/3 ML INSULN.PEN. SQ SCH (21:09)
[2018-09-06] MEDS: ZOLPIDEM 5 MG TABLET. PO PRN (22:46)
[2018-09-07 05:05] VITALS: BP 123/71
[2018-09-07] MEDS: LEVOTHYROXINE 175 MCG TABLET PO SCH (05:24)
[2018-09-07] MEDS: INSULIN LISPRO 300 UNITS/3 ML INSULN.PEN. SQ SCH ×3 (07:30→16:54)
[2018-09-07] MEDS: ASPIRIN 325 MG TABLET PO SCH (08:46)
[2018-09-07] MEDS: FAMOTIDINE 20 MG TABLET PO SCH (09:00)
[2018-09-07] MEDS: SEVELAMER CARBONATE 800 MG TABLET. PO SCH ×3 (09:00→21:40)
[2018-09-07] MEDS: MECLIZINE 12.5 MG TABLET. PO SCH ×3 (14:00→21:39)
[2018-09-07 15:20] VITALS: BP 173/65
[2018-09-07] MEDS: GABAPENTIN 100 MG CAPSULE. PO SCH (15:59)
[2018-09-07] MEDS: SERTRALINE 50 MG TABLET. PO SCH (16:00)
[2018-09-07] MEDS: LACTOBACILLUS RHAMNOSUS GG 1 CAPSULE. PO SCH ×2 (16:00→21:39)
[2018-09-07] MEDS: cloNIDine HCL 0.2 MG TABLET PO SCH (16:00)
[2018-09-07] MEDS: DOXYCYCLINE HYCLATE 100 MG TABLET PO SCH ×2 (16:00→21:39)
[2018-09-07] MEDS: DICLOFENAC SODIUM 1% TOPICAL GEL 100GM TUBE. TP SCH ×2 (16:01→21:44)
[2018-09-07] MEDS: rifAXIMin 550 MG TABLET PO SCH ×2 (16:01→21:40)
[2018-09-07] MEDS: METOPROLOL SUCC 24HR ER 25 MG TAB.ER.24H. PO SCH (16:02)
[2018-09-07] MEDS: FOLIC/VIT B COMP W-C (RENAL) TABLET. PO SCH (16:04)
[2018-09-07] MEDS: ISOSORBIDE MONONITRATE ER 30 MG TAB.ER.24H PO SCH (16:04)
[2018-09-07 19:35] VITALS: BP 116/67
[2018-09-07] MEDS: HYDROcodone/APAP 5/325MG 1 TAB TABLET PO PRN (21:41)
[2018-09-07] MEDS: INSULIN GLARGINE 300 UNITS/3 ML INSULN.PEN. SQ SCH (21:49)
[2018-09-08] MEDS: ZOLPIDEM 5 MG TABLET. PO PRN (00:13)
[2018-09-08] MEDS: LEVOTHYROXINE 175 MCG TABLET PO SCH (05:29)
[2018-09-08 05:45] VITALS: BP 144/54
[2018-09-08] MEDS: MECLIZINE 12.5 MG TABLET. PO SCH (08:19)
[2018-09-08] MEDS: FAMOTIDINE 20 MG TABLET PO SCH (08:20)
[2018-09-08] MEDS: METOPROLOL SUCC 24HR ER 25 MG TAB.ER.24H. PO SCH (08:20)
[2018-09-08] MEDS: SERTRALINE 50 MG TABLET. PO SCH (08:20)
[2018-09-08] MEDS: DOXYCYCLINE HYCLATE 100 MG TABLET PO SCH (08:20)
[2018-09-08] MEDS: LACTOBACILLUS RHAMNOSUS GG 1 CAPSULE. PO SCH (08:20)
[2018-09-08 08:21] VITALS: BP 144/54
[2018-09-08] MEDS: ISOSORBIDE MONONITRATE ER 30 MG TAB.ER.24H PO SCH (08:21)
[2018-09-08] MEDS: cloNIDine HCL 0.2 MG TABLET PO SCH (08:21)
[2018-09-08] MEDS: GABAPENTIN 100 MG CAPSULE. PO SCH (08:21)
[2018-09-08] MEDS: SODIUM BICARBONATE 650 MG TABLET PO SCH (08:21)
[2018-09-08] MEDS: FOLIC/VIT B COMP W-C (RENAL) TABLET. PO SCH (08:22)
[2018-09-08] MEDS: SEVELAMER CARBONATE 800 MG TABLET. PO SCH (08:22)
[2018-09-08] MEDS: rifAXIMin 550 MG TABLET PO SCH (08:22)
[2018-09-08] MEDS: ASPIRIN 325 MG TABLET PO SCH (08:23)
[2018-09-08] MEDS: DICLOFENAC SODIUM 1% TOPICAL GEL 100GM TUBE. TP SCH (08:23)
[2018-09-08] MEDS: INSULIN LISPRO 300 UNITS/3 ML INSULN.PEN. SQ SCH ×2 (08:30→12:05)
--- NOTE | 2018-09-08 10:22 | DS ---
DATE OF DISCHARGE: 09/08/2018 HOSPITAL COURSE: The patient is a 73-year-old female patient who was admitted to swing bed as a transfer from [facility] with infected right big toe with paronychia. She has also had wound in the plantar aspect of her right foot. She was seen by Infectious Disease specialist as well as orthopedic surgeon, apparently grew Pseudomonas aeruginosa and she was initially on Augmentin and was switched by Dr. Mau Loza to ciprofloxacin 250 mg once a day. She has completed the course of antibiotic. Her right big toe has healed completely. There is no redness, tenderness or discharge. Her plantar wound is clean with serosanguineous drainage. She was fitted with a special shoe by the [facility] and she remained hemodynamically stable and afebrile, a decision was made to discharge her home with home health to continue with dialysis as an outpatient. Apparently, the [facility] is responsible for transferring him back and forth to dialysis center. PHYSICAL EXAMINATION: GENERAL: When I examined her today, she was resting slightly propped up in bed, in no apparent distress. She was pale, but no jaundice, cyanosis, lymphadenopathy or thyromegaly. No jugular venous distension. No lower limb edema. VITAL SIGNS: Her heart rate was 51, blood pressure was 144/54, temperature was 97.6, respiratory rate was 16 and oxygen saturation was 94%. HEAD, EYES, EARS, NOSE AND THROAT: Showed normocephalic, atraumatic. NECK: Supple. HEART: Showed normal first and second sounds. No gallop, rub or murmur. CHEST: Clear to auscultation. No crepitation or rhonchi. ABDOMEN: Distended, soft with a positive shifting dullness. No guarding or rigidity. No organomegaly. Hernial orifice intact. Bowel sounds normal. NEUROLOGIC: She was awake, alert, responding appropriately. All cranial nerves intact. She moves extremities without difficulty. She ambulates with a walker. LABORATORY DATA: Her blood sugar was well controlled. Her stool for C. diff were negative. Her nasal screen for MRSA PCR was negative. DISCHARGE MEDICATIONS: She was discharged home to continue on aspirin 325 mg once a day, cholecalciferol for vitamin D3 5000 international unit once a week, clonidine 0.2 mg daily, diclofenac sodium for Voltaren gel 1 gram twice a day, famotidine 20 mg once a day, Nephro-Octavio 1 tablet once a day, gabapentin 100 mg daily, hydrocodone/APAP 5/325 mg one tablet every 6 hours. She is on NovoLog, Lantus insulin 10 units at bedtime and Humalog insulin 5 units before meals, isosorbide mononitrate 30 mg daily, lactobacillus, rhamnosus 1 capsule twice a day, lactulose 10 grams p.o. b.i.d., levothyroxine sodium 175 mcg once a day, meclizine 25 mg 3 times a day, metoprolol succinate 25 mg once a day, ondansetron 4 mg p.o. q. 6 hours, rifaximin for Xifaxan 550 mg twice a day, sertraline 50 mg daily, sevelamer 800 mg 3 times a day, sodium bicarbonate 1300 mg 3 times per week and tizanidine 2 mg twice a day and Ambien 5 mg at bedtime. FINAL DISCHARGE DIAGNOSES: 1. Infected right big toe, resolved. The patient completed her antibiotic therapy in the form of ciprofloxacin for Pseudomonas aeruginosa. 2. Other medical problems include open wound on the plantar aspect of the right foot that is clear with serosanguineous drainage. No evidence of erythema or purulent drainage. 3. End-stage renal failure, on hemodialysis. 4. Chronic diastolic congestive heart failure. 5. Hypertension. 6. Hyperlipidemia. 7. Peripheral neuropathy. 8. Gastroesophageal reflux disease. 9. Liver cirrhosis. 10. Anxiety and depression. 11. Type 2 diabetes mellitus. 12. Hyperparathyroidism. CHRISTIANE NAVARRO MD DR: OPAL/gilda JOB#: [id number] / [id number]
[2018-09-08 10:30] LABS: HEMOGLOBIN 8.7 g/dL (12.0-15.5); RED BLOOD COUNT 2.77 x10^6/uL (3.50-5.40); RED CELL DISTRIBUTION WIDTH 17.5 % (11.5-14.5); WHITE BLOOD COUNT 3.4 x10^3/uL (4.0-11.0)
[2018-09-08 10:44] LABS: ALBUMIN 2.4 g/dL (3.4-5.0); ALBUMIN/GLOBULIN RATIO 0.6 (1.0-1.7); CREATININE 3.8 mg/dL (0.6-1.0); GFR 11.7; POTASSIUM 3.6 mmol/L (3.5-5.1); TOTAL BILIRUBIN 1.1 mg/dL (0.2-1.0); TOTAL PROTEIN 6.7 g/dL (6.4-8.2)
== END 2018-09-08 14:18 | disposition home health service (06) | DRG 602 ==
LOC: 1 SOUTH 18:03 → LND 08-28 17:12 → 1 SOUTH 09-07 04:00
PROVIDERS: ADMIT Internal Medicine; ATTEND Internal Medicine
DX: L08.9 Local infection of the skin and subcutaneous tissue, unspecified (principal); N18.6 End stage renal disease; I13.2 Hypertensive heart and chronic kidney disease with heart failure and with stage 5 chronic kidney disease, or end stage renal disease; I50.32 Chronic diastolic (congestive) heart failure; E11.22 Type 2 diabetes mellitus with diabetic chronic kidney disease; E11.42 Type 2 diabetes mellitus with diabetic polyneuropathy; E21.3 Hyperparathyroidism, unspecified; E78.5 Hyperlipidemia, unspecified; F32.9 Major depressive disorder, single episode, unspecified; F41.9 Anxiety disorder, unspecified; K21.9 Gastro-esophageal reflux disease without esophagitis; K74.60 Unspecified cirrhosis of liver; L03.039 Cellulitis of unspecified toe; Z82.49 Family history of ischemic heart disease and other diseases of the circulatory system; Z86.73 Personal history of transient ischemic attack (TIA), and cerebral infarction without residual deficits; Z90.710 Acquired absence of both cervix and uterus; Z99.2 Dependence on renal dialysis; B96.5 Pseudomonas (aeruginosa) (mallei) (pseudomallei) as the cause of diseases classified elsewhere; S91.301A Unspecified open wound, right foot, initial encounter; X58.XXXA Exposure to other specified factors, initial encounter; Y93.89 Activity, other specified; Y92.89 Other specified places as the place of occurrence of the external cause; Y99.8 Other external cause status
CPT/HCPCS: 36415; 80053; 81001; 82140; 82565; 82947; 85027; 85610; 87086; 87493; 87641; J1815; J8597; 97110; 97116; 97530; 97535